=== PATIENT | female | born 1955 | race Caucasian/White ===

== ENCOUNTER 2018-01-27 16:13 | Inpatient (IN) | payer SELFPAY ==
[~2018-01-27] VITALS: Ht 152.4 cm; Wt 40.3 kg
[2018-01-27] VITALS (22 sets, daily range): BP systolic 62–226; BP diastolic 42–133; PULSE 62–97; RESP 16–22; TEMP 89.8–102.4; O2SAT 75–100
[2018-01-27] MEDS ORDERED: LORazepam 2 MG/ML VIAL ONE (16:38)
[2018-01-27] MEDS ORDERED: LORazepam 2 MG/ML VIAL IV PUSH ONE (16:45)
--- NOTE | 2018-01-27 16:56 | PD ---
HPI Chief Complaint: Altered mental status Time Seen by Provider: 16:20 Travel History International Travel<30 days: No Contact w/Intl Traveler<30days: No History of Present Illness HPI Patient is homeless and was brought in by EMS secondary to questionable seizure activity. Patient was smoking K2 and she started to have a seizure. She became combative on the scene and temperature was 101. Gave her ice packs. Is also slightly hypotensive at 90s systolic and tachycardic. Patient arrived in the ER unable to get a history secondary to her being altered and combative. [facility] Social History Tobacco Use: Yes Allergies-Medications (Allergen,Severity, Reaction): Coded Allergies: No Allergy Information Available (Unverified , 01/27/18) altered Review of Systems ROS Limitations: Altered Mental Status, Combative Physical Exam Exam Limitations: Altered Mental Status, Combative Narrative GENERAL: Altered and combative SKIN: Focused skin assessment warm/dry. HEAD: Atraumatic. Normocephalic. EYES: Pupils equal and round. No scleral icterus. No injection or drainage. ENT: No nasal bleeding or discharge. Mucous membranes pink and moist. NECK: Trachea midline. No JVD. CARDIOVASCULAR: Tachycardia. No murmur appreciated. RESPIRATORY: No accessory muscle use. Clear to auscultation. Breath sounds equal bilaterally. Tachypnea. GASTROINTESTINAL: Abdomen soft, non-tender, nondistended. Hepatic and splenic margins not palpable. MUSCULOSKELETAL: No obvious deformities. No clubbing. No cyanosis. No edema. NEUROLOGICAL: Awake and alert. Unable to fully assess secondary to patient being combative. Normal speech. PSYCHIATRIC: Patient combative. Data Data Last Documented VS Vital Signs Date Time Temp Pulse Resp B/P (MAP) Pulse Ox O2 Delivery O2 Flow Rate FiO2 01/27/18 18:46 50 01/27/18 18:35 99 01/27/18 18:28 90 20 88/57 (67) Nasal Cannula 3.00 01/27/18 16:55 102.4 Orders Orders Electrocardiogram (01/27/18 16:27) Complete Blood Count With Diff (01/27/18 16:27) Comprehensive Metabolic Panel (01/27/18 16:27) Creatine Kinase (Cpk) (01/27/18 16:27) Prothrombin Time / Inr (Pt) (01/27/18 16:27) Act Partial Throm Time (Ptt) (01/27/18 16:27) Troponin I (01/27/18 16:27) Urinalysis - C+S If Indicated (01/27/18 16:27) Arterial Blood Gas (Abg) (01/27/18 16:27) Blood Culture (01/27/18 16:27) Chest, Single Ap (01/27/18 16:27) Ct Brain W/O Iv Contrast(Rout) (01/27/18 16:27) Ecg Monitoring (01/27/18 16:) Iv Access Insert/Monitor (01/27/18 16:27) Oximetry (01/27/18 16:27) Drug Screen, Random Urine (01/27/18 16:) Alcohol (Ethanol) (01/27/18 16:27) Tylenol (Acetaminophen) (01/27/18 16:27) Salicylates (Aspirin) (01/27/18 16:27) Lactic Acid (01/27/18 16:27) Urinary Catheter Management REHAN.Q8H (01/27/18 16:27) Restraints Non-Violent REHAN.Q3H (01/27/18 16:37) Lorazepam Inj (Ativan Inj) (01/27/18 16:38) Lorazepam Inj (Ativan Inj) (01/27/18 16:45) Sodium Chlor 0.9% 1000 Ml Inj (Ns 1000 M (01/27/18 18:15) Sodium Chlor 0.9% 1000 Ml Inj (Ns 1000 M (01/27/18 18:15) Sodium Chlor 0.9% 1000 Ml Inj (Ns 1000 M (01/27/18 18:15) Vancomycin Inj (Vancomycin Inj) (01/27/18 18:15) Piperacil-Tazo 3.375 Gm Premix (Zosyn 3. (01/27/18 18:15) Naloxone Inj (Narcan Inj) (01/27/18 18:15) Naloxone Inj (Narcan Inj) (01/27/18 18:20) Etomidate Inj (Amidate Inj) (01/27/18 18:28) Succinylcholine Inj (Quelicin Inj) (01/27/18 18:28) Naloxone Inj (Narcan Inj) (01/27/18 18:45) Naloxone Inj (Narcan Inj) (01/27/18 18:45) Midazolam 50 Mg/50 Ml Inj (Versed Inj) (01/27/18 19:00) Chest, Single Ap (01/27/18 ) Etomidate Inj (Amidate Inj) (01/27/18 18:45) Succinylcholine Inj (Quelicin Inj) (01/27/18 18:45) Sodium Chlor 0.9% 1000 Ml Inj (Ns 1000 M (01/27/18 19:15) Admit Order (Ed Use Only) (01/27/18 19:03) Labs Laboratory Tests Test 01/27/18 16:35 01/27/18 16:40 01/27/18 17:50 01/27/18 18:00 White Blood Count 7.5 TH/MM3 Red Blood Count 3.88 MIL/MM3 Hemoglobin 12.7 GM/DL Hematocrit 37.8 % Mean Corpuscular Volume 97.2 FL Mean Corpuscular Hemoglobin 32.7 PG Mean Corpuscular Hemoglobin Concent 33.6 % Red Cell Distribution Width 13.0 % Platelet Count 204 TH/MM3 Mean Platelet Volume 7.7 FL Neutrophils (%) (Auto) 39.9 % Lymphocytes (%) (Auto) 48.5 % Monocytes (%) (Auto) 9.0 % Eosinophils (%) (Auto) 1.8 % Basophils (%) (Auto) 0.8 % Neutrophils # (Auto) 3.0 TH/MM3 Lymphocytes # (Auto) 3.6 TH/MM3 Monocytes # (Auto) 0.7 TH/MM3 Eosinophils # (Auto) 0.1 TH/MM3 Basophils # (Auto) 0.1 TH/MM3 CBC Comment DIFF FINAL Differential Comment Prothrombin Time 10.1 SEC Prothromb Time International Ratio 1.0 RATIO Activated Partial Thromboplast Time 23.8 SEC Blood Urea Nitrogen 7 MG/DL Creatinine 0.89 MG/DL Random Glucose 81 MG/DL Total Protein 7.5 GM/DL Albumin 3.5 GM/DL Calcium Level 7.7 MG/DL Alkaline Phosphatase 62 U/L Aspartate Amino Transf (AST/SGOT) 27 U/L Alanine Aminotransferase (ALT/SGPT) 21 U/L Total Bilirubin 0.3 MG/DL Sodium Level 137 MEQ/L Potassium Level 3.9 MEQ/L Chloride Level 104 MEQ/L Carbon Dioxide Level 21.2 MEQ/L Anion Gap 12 MEQ/L Estimat Glomerular Filtration Rate 55 ML/MIN Total Creatine Kinase 54 U/L Troponin I LESS THAN 0.02 NG/ML Salicylates Level 5.4 MG/DL Acetaminophen Level LESS THAN 2.0 MCG/ML Ethyl Alcohol Level 129 MG/DL Lactic Acid Level 3.9 mmol/L Urine Color YELLOW Urine Turbidity CLEAR Urine pH 5.0 Urine Specific [place] 1.005 Urine Protein NEG mg/dL Urine Glucose (UA) NEG mg/dL Urine Ketones NEG mg/dL Urine Occult Blood NEG Urine Nitrite NEG Urine Bilirubin NEG Urine Urobilinogen LESS THAN 2 mg/dL Urine Leukocyte Esterase NEG Urine RBC LESS THAN 1 /hpf Urine WBC 1 /hpf Urine Squamous Epithelial Cells 1 /hpf Urine Hyaline Casts 1 /lpf Urine Mucus FEW /lpf Microscopic Urinalysis Comment CATH-CULT NOT IND Urine Opiates Screen NEG Urine Barbiturates Screen NEG Urine Amphetamines Screen NEG Urine Benzodiazepines Screen NEG Urine Cocaine Screen NEG Urine Cannabinoids Screen NEG Blood Gas Puncture Site RT RADIAL Blood Gas Patient Temperature 98.6 Blood Gas HCO3 21 mmol/L Blood Gas Base Excess -5.8 mmol/L Blood Gas Oxygen Saturation 85 % Arterial Blood pH 7.18 Arterial Blood Partial Pressure CO2 59 mmHg Arterial Blood Partial Pressure O2 75 mmHG Arterial Blood Oxygen Content 12.5 Vol % Arterial Blood Carboxyhemoglobin 4.7 % Arterial Blood Methemoglobin 0.7 % Blood Gas Hemoglobin 10.3 G/DL Oxygen Delivery Device NASAL CANNULA Blood Gas Liter Flow 5 L/M [facility] Medical Decision Making Medical Screen Exam Complete: Yes Emergency Medical Condition: Yes Interpretation(s) ECG: Sinus tachycardia 106, ST depression lead 2/3/aVF Labs: Elevated lactate and alcohol; increased CO2 on ABG Last Impressions Head CT 01/27/181626 Signed Impressions: CONCLUSION: 1. No acute abnormality seen. 2. Mild atrophy. Chest X-Ray 01/27/181626 Signed Impressions: CONCLUSION: Negative for acute process. Chest X-Ray 01/27/18 0000 Signed Impressions: CONCLUSION: Endotracheal tube and nasogastric tube in good position. No acute infiltrate. Differential Diagnosis Sepsis, CVA, seizure, electrolyte abnormality, ICH, toxin ingestion, acute intoxication Narrative Course She presents to the emergency department with altered mental status and questionable seizure activity, possibly secondary to K2. Patient placed on gambling monitor, IV access obtained, and labs/EKG/chest x-ray//head CT ordered. Patient given 1 mg IV Ativan. Also placed in soft restraints. Ice packs placed secondary to hyperthermia. 1933: BP 133/77, patient given fourth liter IV normal saline. She was given 1 g of vancomycin and 3.375 g IV Zosyn. Admitted to the ICU. Patient has a repeat lactate that is pending, ICU admit MD to follow. Critical Care Narrative Aggregate critical care time was 35 minutes. Time to perform other separately billable procedures was not included in the critical care time. My time did not include minutes spent treating any other patients simultaneously or on activities that did not directly contribute to the patient's treatment. The services I provided to this patient were to treat and/or prevent clinically significant deterioration that could result in: , respiratory depression, IN, I provided critical care services requiring my management, as noted below: Chart data review, documentation time, medication orders and management, vital sign assessments/reviewing monitor data, ordering and reviewing lab tests, ordering and interpreting/reviewing x-rays and diagnostic studies, care of the patient and discussion of the patient with the admitting physicians. Procedures Procedure Narrative After the risks and benefits were discussed the following procedure was performed: INTUBATION: The patient was put in optimal position for the procedure. Rapid sequence intubation was initiated by me using 14 milligrams of etomidate IV and 70 milligrams of succinyl choline IV. The patient was intubated with a 7-1/2 cuffed endotracheal tube. Tube placement was confirmed by visualization of the tube and balloon passing through the cords, capnometry and subsequent chest x-ray. Breath sounds were equal and well aerated bilaterally postintubation. No breath sounds over stomach. Patient tolerated procedure well. Physician Communication Physician Communication Dr. Eden ICU attending. The patient gets a total of 4 L of IV normal saline. Diagnosis Primary Impression: Altered mental status Qualified Codes: R41.82 - Altered mental status, unspecified Additional Impression: Respiratory failure Qualified Codes: J96.01 - Acute respiratory failure with hypoxia; J96.02 - Acute respiratory failure with hypercapnia Admitting Information Admitting Physician Requests: Admit Condition: Critical Leilani Waller MD Jan 27, 2018 16:56
[2018-01-27 17:03] LABS: BASOPHIL # 0.1 TH/MM3 (0-0.2); BASOPHIL % 0.8 % (0.0-2.0); EOSINOPHIL # 0.1 TH/MM3 (0-0.4); EOSINOPHIL % 1.8 % (0.0-4.0); HEMATOCRIT 37.8 % (35.0-46.0); HEMOGLOBIN 12.7 GM/DL (11.6-15.3); LYMPH % 48.5 % (9.0-44.0); LYMPHOCYTE # 3.6 TH/MM3 (1.0-4.8); MEAN CELL VOLUME 97.2 FL (80.0-100.0); MEAN CORPUSCULAR HEMOGLOBIN 32.7 PG (27.0-34.0); MEAN CORPUSCULAR HGB CONC 33.6 % (32.0-36.0); MEAN PLATELET VOLUME 7.7 FL (7.0-11.0); MONOCYTE # 0.7 TH/MM3 (0-0.9); NEUT % 39.9 % (16.0-70.0); PLATELET COUNT 204 TH/MM3 (150-450); RED BLOOD COUNT 3.88 MIL/MM3 (4.00-5.30); WHITE BLOOD COUNT 7.5 TH/MM3 (4.0-11.0)
--- NOTE | 2018-01-27 17:09 | RADRPT ---
EXAM DATE: 01/27/2018 5:04 PM EDT AGE/SEX: 89 years / Female INDICATIONS: Syncope, short of breath CLINICAL DATA: This is the patient's initial encounter. Patient reports that signs and symptoms have been present for 1 day and indicates a pain score of Nonresponsive. MEDICAL/SURGICAL HISTORY: Non-responsive. ETOH Non-responsive. COMPARISON: No prior exams available for comparison. FINDINGS: Lungs are clear. Heart and [place] vascularity are normal. Old rib fractures seen on the right. There is no pneumothorax. I see an acute fracture. CONCLUSION: Negative for acute process. Electronically signed by: Ezequiel Malhotra MD 01/27/2018 5:07 PM EDT
[2018-01-27 17:16] LABS: PROTHROMBIN TIME - PATIENT 10.1 SEC (9.8-11.6)
--- NOTE | 2018-01-27 17:41 | RADRPT ---
EXAM DATE: 01/27/2018 5:37 PM EDT AGE/SEX: 89 years / Female INDICATIONS: Altered mental status. CLINICAL DATA: This is the patient's initial encounter. Patient reports that signs and symptoms have been present for 1 day and indicates a pain score of Nonresponsive. MEDICAL/SURGICAL HISTORY: Non-responsive. Non-responsive. RADIATION DOSE: 34.63 CTDI (mGy) COMPARISON: No prior exams available for comparison. TECHNIQUE: CT of the head without contrast. Using automated exposure control and adjustment of the mA and/or kV according to patient size, radiation dose was kept as low as reasonably achievable to ob tain optimal diagnostic quality images. FINDINGS: Cerebrum: The ventricles and cortical sulci are mildly widened. No evidence of midline shift, mass lesion, hemorrhage or acute infarction. No extraaxial fluid collections are seen. Posterior Fossa: The cerebellum and brainstem are intact. The 4th ventricle is midline. The cerebe llopontine angle is unremarkable. Extracranial: The visualized portion of the orbits is intact. Skull: The calvaria is intact. No evidence of skull fracture. CONCLUSION: 1. No acute abnormality seen. 2. Mild atrophy. Electronically signed by: Jose Antonio Avalos MD 01/27/2018 5:39 PM EDT
[2018-01-27] MEDS ORDERED: PIPERACIL-TAZO 3.375 GM PREMIX 50 ML IV ONE (18:15)
[2018-01-27] MEDS ORDERED: VANCOMYCIN INJ 1,000 MG in SODIUM CHLOR 0.9% 250 ML INJ 250 ML IV ONE (18:15)
[2018-01-27] MEDS ORDERED: SODIUM CHLOR 0.9% 1000 ML INJ 1,000 ML IV ONE ×4 (18:15→19:15)
[2018-01-27] MEDS ORDERED: NALOXONE HCL 0.4 MG/ML AMP ONE ×2 (18:15→18:20)
[2018-01-27] MEDS ORDERED: SUCCINYLCHOLINE CHLORIDE 200 MG/10 ML VIAL ONE (18:28)
[2018-01-27] MEDS ORDERED: ETOMIDATE 40 MG/20 ML VIAL ONE (18:28)
[2018-01-27 18:38] LABS: ALBUMIN 3.5 GM/DL (3.4-5.0); ALKALINE PHOSPHATASE 62 U/L (45-117); ALT (GPT) 21 U/L (10-53); AST (GOT) 27 U/L (15-37); BICARBONATE 21.2 MEQ/L (21.0-32.0); BLOOD UREA NITROGEN 7 MG/DL (7-18); CALCIUM 7.7 MG/DL (8.5-10.1); CHLORIDE 104 MEQ/L (98-107); CREATININE 0.89 MG/DL (0.50-1.00); GLOMERULAR FILTRATION RATE 55 ML/MIN (>89); GLUCOSE,RANDOM 81 MG/DL (74-106); SODIUM (NA) 137 MEQ/L (136-145); TOTAL BILIRUBIN ADULT 0.3 MG/DL (0.2-1.0); TOTAL PROTEIN 7.5 GM/DL (6.4-8.2); TROPONIN I LESS THAN 0.02 NG/ML (0.02-0.05)
[2018-01-27] MEDS ORDERED: SUCCINYLCHOLINE CHLORIDE 200 MG/10 ML VIAL IV PUSH ONE (18:45)
[2018-01-27] MEDS ORDERED: ETOMIDATE 20 MG/10 ML VIAL IV PUSH ONE (18:45)
[2018-01-27] MEDS ORDERED: NALOXONE HCL 0.4 MG/ML AMP IV PUSH ONE ×2 (18:45)
[2018-01-27 18:46] LABS: BILIRUBIN, URINE NEG (NEG); BLOOD, URINE NEG (NEG); GLUCOSE,URINE NEG (NEG); HYALINE CAST, URINE 1 /lpf (RARE); KETONE, URINE NEG (NEG); MUCUS URINE FEW /lpf (OCC); NITRITE,URINE NEG (NEG); SQUAMOUS EPITHELIAL CELL URINE 1 /hpf (0-5); URINE COLOR YELLOW (YELLW/STRAW); URINE LEUKOCYTE ESTERASE NEG (NEG)
[2018-01-27 18:57] LABS: ACETAMINOPHEN LESS THAN 2.0 MCG/ML (10.0-30.0)
[2018-01-27] MEDS ORDERED: MIDAZOLAM 50 MG/50 ML INJ 50 ML IV PRN ×2 (19:00→22:00)
--- NOTE | 2018-01-27 19:20 | RADRPT ---
EXAM DATE: 01/27/2018 6:55 PM EDT AGE/SEX: 89 years / Female INDICATIONS: Post intubation and OG tube placement. CLINICAL DATA: This is the patient's initial encounter. Patient reports that signs and symptoms have been present for 1 day and indicates a pain score of Nonresponsive. MEDICAL/SURGICAL HISTORY: Non-responsive. Non-responsive. COMPARISON: C, CHEST SINGLE AP, 01/27/2018. . FINDINGS: Endotracheal tube in good position. NG enters stomach. No focal consolidation or effusion. No pneumot horax. Mild interstitial prominence. Remote right rib fractures. CONCLUSION: Endotracheal tube and nasogastric tube in good position. No acute infiltrate. Electronically signed by: Giuliano Luong MD 01/27/2018 7:19 PM EDT
[2018-01-27] MEDS ORDERED: NOREPINEPHRINE 4 MG/4 ML AMP ONE (20:20)
[2018-01-27] MEDS ORDERED: DOPamine 400 MG/250 ML INJ 250 ML ONE (20:33)
[2018-01-27] MEDS ORDERED: ATROPINE SULFATE 1 MG/10 ML SYRINGE ONE (20:34)
[2018-01-27] MEDS ORDERED: CHLORHEXIDINE GLUCONATE 2 % 1 PACK (2 CLOTHS) TOP PRN (21:30)
[2018-01-27] MEDS ORDERED: NURSING INFORMATION XX SCH (21:30)
[2018-01-27] MEDS ORDERED: RESP: ALBUTEROL 2.5 MG/IPRATROPIUM 0.5 MG NEB (PRN) INH (21:30)
[2018-01-27] MEDS ORDERED: SODIUM CHLORIDE 0.9% FLUSH 10 ML FLUSH IV FLUSH PRN (21:30)
[2018-01-27] MEDS ORDERED: ACETAMINOPHEN 325 MG TAB PO PRN (21:30)
[2018-01-27] MEDS ORDERED: TERBUTALINE INJ 1 MG/ML AMP SQ PRN ×2 (21:45)
[2018-01-27] MEDS ORDERED: NOREPINEPHRINE-DEXTROSE DRIP 250 ML IV PRN (22:00)
[2018-01-27] MEDS: RESP: ALBUTEROL 2.5 MG/IPRATROPIUM 0.5 MG NEB (SCH) NEB (22:06)
[2018-01-27 22:51] LABS: TROPONIN I LESS THAN 0.02 NG/ML (0.02-0.05)
[2018-01-27] MEDS ORDERED: DOPamine 800 MG/500 ML INJ 500 ML IV PRN (23:00)
[2018-01-27] MEDS ORDERED: MIDAZOLAM 50 MG/50 ML INJ 50 ML IV ONE (23:05)
[2018-01-28] VITALS (58 sets, daily range): BP systolic 65–130; BP diastolic 43–83; PULSE 67–98; RESP 19–29; TEMP 93.5–98.9; O2SAT 87–100
--- NOTE | 2018-01-28 00:06 | HHI.HP ---
HPI Service Critical Care Medicine Primary Care Physician Admission Diagnosis K2 and opioid intox Diagnosis: Chief Complaint: Altered mental status/seizure Travel History International Travel<30 Days: No Contact w/Intl Traveler <30 Da: No Traveled to Known Affected Are: No Sepsis Criteria SIRS Criteria (2 or more): Temp > 100.9 or < 96.8, RR > 20 or PaCO2 < 32 Sepsis Criteria (SIRS+source): Infect source susp/known Severe Sepsis (+one): Hypotension Septic Shock Criteria: Unresponsive to 30ml/kg fluid bolus Criteria Outcome: Meets septic shock criteria History of Present Illness History of Present Illness HPI Patient is homeless and was brought in by EMS secondary to questionable seizure activity. Patient was smoking K2 and she started to have a seizure. She became combative on the scene and temperature was 101. Gave her ice packs. She was also slightly hypotensive at 90s systolic and tachycardic. Patient arrived in the ER unable to get a history secondary to her being altered and combative. Patient was intubated by ER physician and placed on mechanical ventilation. Subsequently patient developed hypotension received 4 L fluid boluses however remained hypotensive with systolic blood pressure in the 60s when I arrived to evaluate her in the ER. She had been started on Versed which was held earlier due to hypotension. When I evaluated the patient she was orally intubated on mechanical ventilation with systolic blood pressure in the 60s and heart rate in the 40s. I immediately ordered Levophed and dopamine GTT. I immediately started making preparation to place a central line however patient developed worsening bradycardia with heart rate dropping down to 25. She was given 1 amp of atropine and epinephrine IV push with which her heart rate came up to the 100s and blood pressure improved. A left femoral central line was placed emergently for central vascular access. Bedside echo performed by myself revealed good LV/RV contractility with no pericardial effusion noted. Patient did receive a dose of vancomycin and Zosyn IV in the ER she was also febrile up to 102 on arrival though this may be related to K2 use. History PFSH Social History Tobacco Use: Yes Allergies-Medications Allergies-Medications (Allergen,Severity, Reaction): Coded Allergies: No Allergy Information Available (Unverified , 01/27/18) altered ROS Review of Systems ROS Limitations: Altered Mental Status Physical Exam Vital Signs Vital Signs Date Time Temp Pulse Resp B/P (MAP) Pulse Ox O2 Delivery O2 Flow Rate FiO2 01/27/18 23:25 89.8 86 22 132/79 (96) 18 23:00 100 100 18 22:38 100 100 18 22:31 97.0 62 22 117/75 (89) 99 Ventilator 18 22:13 100 18 22:09 62 16 117/80 (92) 97 Ventilator 18 22:06 62 117/80 18 22:06 63 117/80 18 21:01 77 16 152/79 (103) 100 Ventilator 18 20:46 92 18 136/81 (99) 99 Ventilator 18 20:41 73 16 200/133 (155) 92 Ventilator 18 20:25 100 100 18 19:57 63 16 62/47 (52) 100 Ventilator 18 19:49 68 16 62/47 (52) 100 Ventilator 18 19:47 71 16 64/42 (49) 100 Ventilator 18 19:41 75 16 133/75 (94) 75 Room Air 18 19:26 97 16 226/89 (134) 100 Ventilator 18 19:07 82 18 132/76 (94) 100 Ventilator 18 18:46 50 18 18:35 99 100 18/18 18:28 90 20 88/57 (67) 96 Nasal Cannula 3.00 1818 18:24 89 20 88/57 (67) 97 Nasal Cannula 3.00 18 17:56 86 18 82/52 (62) 100 Nasal Cannula 3.00 1818 16:55 102.4 89 18 100 Nasal Cannula 3.00 1818 16:55 93 Room Air 18 16:30 102.4 94 18 101/77 (85) 93 Physical Exam HEENT/ Neuro: Sedated/encephalopathic, orally intubated, Pallor present, no icterus, tongue/ mucosa dry Neck: No JVD Chest/Pulm: on mech vent, good air entry bilaterally, no wheezing or crackles CVS: S1-S2 regular, no murmur GI/abdomen: soft, nontender, bowel sounds sluggish Extremities: warm bilaterally, no edema Laboratory Laboratory Tests Test 01/27/18 16:35 01/27/18 16:40 01/27/18 17:50 01/27/18 18:00 White Blood Count 7.5 Red Blood Count 3.88 Hemoglobin 12.7 Hematocrit 37.8 Mean Corpuscular Volume 97.2 Mean Corpuscular Hemoglobin 32.7 Mean Corpuscular Hemoglobin Concent 33.6 Red Cell Distribution Width 13.0 Platelet Count 204 Mean Platelet Volume 7.7 Neutrophils (%) (Auto) 39.9 Lymphocytes (%) (Auto) 48.5 Monocytes (%) (Auto) 9.0 Eosinophils (%) (Auto) 1.8 Basophils (%) (Auto) 0.8 Neutrophils # (Auto) 3.0 Lymphocytes # (Auto) 3.6 Monocytes # (Auto) 0.7 Eosinophils # (Auto) 0.1 Basophils # (Auto) 0.1 CBC Comment DIFF FINAL Differential Comment Prothrombin Time 10.1 Prothromb Time International Ratio 1.0 Activated Partial Thromboplast Time 23.8 Blood Urea Nitrogen 7 Creatinine 0.89 Random Glucose 81 Total Protein 7.5 Albumin 3.5 Calcium Level 7.7 Alkaline Phosphatase 62 Aspartate Amino Transf (AST/SGOT) 27 Alanine Aminotransferase (ALT/SGPT) 21 Total Bilirubin 0.3 Sodium Level 137 Potassium Level 3.9 Chloride Level 104 Carbon Dioxide Level 21.2 Anion Gap 12 Estimat Glomerular Filtration Rate 55 Total Creatine Kinase 54 Troponin I LESS THAN 0.02 Salicylates Level 5.4 Acetaminophen Level LESS THAN 2.0 Ethyl Alcohol Level 129 Lactic Acid Level 3.9 Urine Color YELLOW Urine Turbidity CLEAR Urine pH 5.0 Urine Specific [place] 1.005 Urine Protein NEG Urine Glucose (UA) NEG Urine Ketones NEG Urine Occult Blood NEG Urine Nitrite NEG Urine Bilirubin NEG Urine Urobilinogen LESS THAN 2 Urine Leukocyte Esterase NEG Urine RBC LESS THAN 1 Urine WBC 1 Urine Squamous Epithelial Cells 1 Urine Hyaline Casts 1 Urine Mucus FEW Microscopic Urinalysis Comment CATH-CULT NOT IND Urine Opiates Screen NEG Urine Barbiturates Screen NEG Urine Amphetamines Screen NEG Urine Benzodiazepines Screen NEG Urine Cocaine Screen NEG Urine Cannabinoids Screen NEG Blood Gas Puncture Site RT RADIAL Blood Gas Patient Temperature 98.6 Blood Gas HCO3 21 Blood Gas Base Excess -5.8 Blood Gas Oxygen Saturation 85 Arterial Blood pH 7.18 Arterial Blood Partial Pressure CO2 59 Arterial Blood Partial Pressure O2 75 Arterial Blood Oxygen Content 12.5 Arterial Blood Carboxyhemoglobin 4.7 Arterial Blood Methemoglobin 0.7 Blood Gas Hemoglobin 10.3 Oxygen Delivery Device NASAL CANNULA Blood Gas Liter Flow 5 Test 01/27/18 19:17 01/27/18 20:15 01/27/18 22:20 Lactic Acid Level 1.2 Blood Gas Puncture Site RT FEMORAL Blood Gas Patient Temperature 98.6 Blood Gas HCO3 19 Blood Gas Base Excess -8.1 Blood Gas Oxygen Saturation 83 Arterial Blood pH 7.16 Arterial Blood Partial Pressure CO2 56 Arterial Blood Partial Pressure O2 65 Arterial Blood Oxygen Content 12.5 Arterial Blood Carboxyhemoglobin 2.7 Arterial Blood Methemoglobin 0.7 Blood Gas Hemoglobin 10.6 Oxygen Delivery Device VENTILATOR Blood Gas Ventilator Setting Blood Gas Inspired Oxygen 100 Total Creatine Kinase 113 Troponin I LESS THAN 0.02 Date/Time Source Procedure Growth Status 01/27/18 16:40 Blood Peripheral Aerobic Blood Culture Pending Received 01/27/18 16:40 Blood Peripheral Anaerobic Blood Culture Pending Received Result Diagram: 01/27/18 1635 01/27/18 1635 Imaging Last Impressions Head CT 01/27/18 1627 Signed Impressions: CONCLUSION: 1. No acute abnormality seen. 2. Mild atrophy. Chest X-Ray 01/27/181626 Signed Impressions: CONCLUSION: Negative for acute process. Septic Shock Reassessment Septic shock perfusion: reassessment completed Caprini VTE Risk Assessment Caprini VTE Risk Assessment: Mod/High Risk (score >= 2) Caprini Risk Assessment Model Point Value = 1 Point Value = 2 Point Value = 3 Point Value = 5 Age 41-60 Minor surgery BMI > 25 kg/m2 Swollen legs Varicose veins or History of unexplained or recurrent spontaneous Oral contraceptives or hormone replacement Sepsis (< 1 month) Serious lung disease, including pneumonia (< 1 month) Abnormal pulmonary function Acute myocardial infarction Congestive heart failure (< 1 month) History of inflammatory bowel disease Medical patient at bed rest Age 61-74 Arthroscopic surgery Major open surgery (> 45 min) Laparoscopic surgery (> 45 min) Malignancy Confined to bed (> 72 hours) Immobilizing plaster cast Central venous access Age >= 75 History of VTE Family history of VTE Factor V Leiden Prothrombin [id number] Lupus anticoagulant Anticardiolipin antibodies Elevated serum homocysteine Heparin-induced thrombocytopenia Other congenital or acquired thrombophilia Stroke (< 1 month) Elective arthroplasty Hip, pelvis, or leg fracture Acute spinal cord injury (< 1 month) Prophylaxis Regimen Total Risk Factor Score Risk Level Prophylaxis Regimen 0-1 Low Early ambulation 2 Moderate Order ONE of the following: *Sequential Compression Device (SCD) *Heparin 5000 units SQ BID 3-4 Higher Order ONE of the following medications: *Heparin 5000 units SQ TID *Enoxaparin/Lovenox 40 mg SQ daily (WT < 150 kg, CrCl > 30 mL/min) *Enoxaparin/Lovenox 30 mg SQ daily (WT < 150 kg, CrCl > 10-29 mL/min) *Enoxaparin/Lovenox 30 mg SQ BID (WT < 150 kg, CrCl > 30 mL/min) AND/OR *Sequential Compression Device (SCD) 5 or more Highest Order ONE of the following medications: *Heparin 5000 units SQ TID (Preferred with Epidurals) *Enoxaparin/Lovenox 40 mg SQ daily (WT < 150 kg, CrCl > 30 mL/min) *Enoxaparin/Lovenox 30 mg SQ daily (WT < 150 kg, CrCl > 10-29 mL/min) *Enoxaparin/Lovenox 30 mg SQ BID (WT < 150 kg, CrCl > 30 mL/min) AND *Sequential Compression Device (SCD) Assessment and Plan Assessment and Plan Middle-aged female with: Encephalopathy Seizure Substance abuse-K2 spice Acute respiratory failure on mechanical ventilation Shock-vasodilatory shock, suspect septic shock Fever Plan: Neuro: Follow neuro status. Head CT negative for bleed. Versed gtt. as needed for sedation. EEG in a.m. Cardiovascular: Status post 4 L normal saline bolus. Levophed/dopamine for pressor support/bradycardia. Cycle cardiac enzymes. 2D echo in a.m. Continue IV fluids. Suspect vasodilator shock. Pulmonary: Continue mechanical ventilation, vent bundle, bronchodilators as needed. GI/liver: N.p.o. for now. OG tube to low intermittent wall suction. Renal/: IV hydration, strict intake output, monitor and replete electrolytes, follow BUN/creatinine. ID: Empiric antibiotic coverage with IV Zosyn. Patient did receive IV vancomycin in the ER. Follow-up blood cultures, UA urine cultures as well as sputum Gram stain and cultures. Endocrine: Check TSH. Watch for hyperglycemia, SSI for glycemic control if needed. Heme: Follow CBC Prophylaxis: Pepcid/SCDs/subcu heparin Access: Left femoral central venous catheter placed in the ER on 01/27. Consult palliative care to assist with deciding goals of therapy. Condition critical Time spent on critical care excluding procedures 60 minutes Sukhi Dumont MD Jan 28, 2018 00:06
--- NOTE | 2018-01-28 00:38 | PD.PROCEDR ---
Central Line Procedure Date of procedure: 01/27/2018 REASON FOR PROCEDURE Central venous access PROCEDURE PERFORMED Central line placement: Left femoral vein CONSENT Informed consent for procedure was not obtained as this was an emergent procedure due to hypotension/bradycardia requiring pressors ANESTHESIA Local injection of 1% Lidocaine DESCRIPTION OF THE PROCEDURE The patient was placed in supine position. The area was exposed and cleansed with ChloraPrep, times two. Large sterile drape was used to cover the patient, with the site exposed, under sterile conditions including cap, face mask, sterile gown, and sterile gloves. On single attempt, the introducer needle was inserted with negative pressure in syringe and venous flash was obtained. The guide wire was then advanced without any restriction and the needle was removed. The dilator was used without any complications. Using Seldinger technique a 20 cm antimicrobial coated triple-lumen catheter was advanced over the guide wire to a depth of 18 centimeters. The guide wire was removed. All ports were aspirated with dark venous blood return and flushed easily with sterile saline. All ports were capped. Antibiotic disc was placed around central line at puncture site. The central line was secured to the skin with a StatLock. The area was bandaged with sterile see-through central line bandage. COMPLICATIONS: No apparent complications ESTIMATED BLOOD LOSS: Less than 1 cc. Sukhi Dumont MD Jan 28, 2018 00:38
[2018-01-28] MEDS: SODIUM CHLOR 0.9% 1000 ML INJ 1,000 ML IV SCH ×5 (01:00→22:15)
[2018-01-28] MEDS: PIPERACIL-TAZO 3.375 GM PREMIX 50 ML IV SCH ×2 (01:08→05:36)
[2018-01-28] MEDS: HEPARIN SODIUM - SQ 10,000 UNITS/ML VIAL SQ SCH ×2 (01:08→10:34)
[2018-01-28] MEDS: RESP: ALBUTEROL 2.5 MG/IPRATROPIUM 0.5 MG NEB (SCH) NEB ×4 (03:31→20:30)
[2018-01-28] MEDS: CHLORHEXIDINE GLUCONATE 2 % 1 PACK (2 CLOTHS) TOP SCH (03:52)
[2018-01-28 07:15] LABS: BASOPHIL % 0.4 % (0.0-2.0); EOSINOPHIL % 0.3 % (0.0-4.0); HEMATOCRIT 39.5 % (35.0-46.0); HEMOGLOBIN 13.3 GM/DL (11.6-15.3); LYMPH % 10.4 % (9.0-44.0); LYMPHOCYTE # 1.3 TH/MM3 (1.0-4.8); MEAN CELL VOLUME 97.7 FL (80.0-100.0); MEAN CORPUSCULAR HEMOGLOBIN 32.8 PG (27.0-34.0); MEAN CORPUSCULAR HGB CONC 33.6 % (32.0-36.0); MEAN PLATELET VOLUME 7.7 FL (7.0-11.0); MONO % 9.3 % (0.0-8.0); MONOCYTE # 1.2 TH/MM3 (0-0.9); NEUT % 79.6 % (16.0-70.0); PLATELET COUNT 165 TH/MM3 (150-450); RED BLOOD COUNT 4.04 MIL/MM3 (4.00-5.30); RED CELL DISTRIBUTION WIDTH 12.8 % (11.6-17.2); WHITE BLOOD COUNT 12.6 TH/MM3 (4.0-11.0)
[2018-01-28 07:46] LABS: ALBUMIN 2.8 GM/DL (3.4-5.0); BICARBONATE 23.9 MEQ/L (21.0-32.0); CALCIUM 7.3 MG/DL (8.5-10.1); CALCIUM-PROTEIN CORRECTED 7.8 MG/DL (8.5-10.1); CREATININE 0.63 MG/DL (0.50-1.00); MAGNESIUM 1.2 MG/DL (1.5-2.5); PHOSPHORUS 2.1 MG/DL (2.5-4.9); TOTAL BILIRUBIN ADULT 0.9 MG/DL (0.2-1.0); TOTAL PROTEIN 6.1 GM/DL (6.4-8.2); TROPONIN I 0.12 NG/ML (0.02-0.05)
[2018-01-28 08:30] LABS: BANDS 8 % (0-6); BASOPHILS 1 % (0-2); LYMPHOCYTES 7 % (9-44); MONOCYTES 10 % (0-8); NEUTROPHIL # MANUAL DIFF 10.3 TH/MM3 (1.8-7.7); POLYS (SEG NEUTROPHILS) 74 % (16-70)
[2018-01-28] MEDS: CHLORHEXIDINE 0.12% (ORAL KIT) 15 ML CUP MT SCH ×2 (09:10→20:00)
[2018-01-28] MEDS: FAMOTIDINE 20 MG TAB TUBE SCH ×2 (09:11→21:00)
[2018-01-28] MEDS: SODIUM CHLORIDE 0.9% FLUSH 10 ML FLUSH IV FLUSH SCH ×2 (09:11→22:13)
[2018-01-28] MEDS ORDERED: POTASSIUM PHOSPHATE MONOBASIC 500 MG TAB PO PRN (10:15)
[2018-01-28] MEDS ORDERED: POTASSIUM PHOSPHATE MONOBASIC 500 MG TAB PO/TUBE PRN (10:15)
[2018-01-28] MEDS ORDERED: MAGNESIUM OXIDE 400 MG TAB PO PRN (10:15)
[2018-01-28] MEDS ORDERED: POTASSIUM CHLOR 40 MEQ PREMIX 100 ML IV PRN ×2 (10:15)
[2018-01-28] MEDS ORDERED: POTASSIUM CHLOR 20 MEQ PREMIX 100 ML IV PRN (10:15)
[2018-01-28] MEDS ORDERED: MAGNESIUM SULFATE INJ 2 GM in SODIUM CHLORIDE 0.9% INJ 96 ML IV PRN (10:15)
[2018-01-28] MEDS ORDERED: POTASSIUM CHLORIDE 25 MEQ EFFERVESCENT TAB PO PRN (10:15)
[2018-01-28] MEDS ORDERED: SODIUM PHOSPHATE INJ 30 MMOL in SODIUM CHLOR 0.9% 250 ML INJ 240 ML IV PRN (10:15)
[2018-01-28] MEDS ORDERED: POTASSIUM PHOSPHATE INJ 30 MMOL in SODIUM CHLOR 0.9% 250 ML INJ 250 ML IV PRN (10:15)
[2018-01-28] MEDS ORDERED: MAGNESIUM SULFATE INJ 4 GM in SODIUM CHLORIDE 0.9% INJ 92 ML IV PRN (10:15)
--- NOTE | 2018-01-28 10:25 | HHI.CCPN ---
Subjective Remarks/Hospital Course Patient is homeless and was brought in by EMS secondary to questionable seizure activity. Patient was smoking K2 and she started to have a seizure. She became combative on the scene and temperature was 101. Gave her ice packs. She was also slightly hypotensive at 90s systolic and tachycardic. Patient arrived in the ER unable to get a history secondary to her being altered and combative. Patient was intubated by ER physician and placed on mechanical ventilation. Subsequently patient developed hypotension received 4 L fluid boluses however remained hypotensive with systolic blood pressure in the 60s when I arrived to evaluate her in the ER. She had been started on Versed which was held earlier due to hypotension. When I evaluated the patient she was orally intubated on mechanical ventilation with systolic blood pressure in the 60s and heart rate in the 40s. I immediately ordered Levophed and dopamine GTT. I immediately started making preparation to place a central line however patient developed worsening bradycardia with heart rate dropping down to 25. She was given 1 amp of atropine and epinephrine IV push with which her heart rate came up to the 100s and blood pressure improved. A left femoral central line was placed emergently for central vascular access. Bedside echo performed by myself revealed good LV/RV contractility with no pericardial effusion noted. Patient did receive a dose of vancomycin and Zosyn IV in the ER she was also febrile up to 102 on arrival though this may be related to K2 use. 01/28: No events over the night. Patient remains intubated, Versed drip stopped this morning. Patient continues to require dopamine at 10, for BP support, bradycardia resolved, norepinephrine is off. She was hypothermic overnight requiring Muriel hugger now normothermic. She is lethargic and very difficult to arouse. Objective Vital Signs Date Time Temp Pulse Resp B/P (MAP) Pulse Ox O2 Delivery O2 Flow Rate FiO2 01/28/18 08:06 97 Ventilator 40 01/28/18 06:00 81 01/28/18 04:00 93.5 22 92/70 (77) 01/27/18 18:28 3.00 Intake and Output 01/28/18 01/28/18 01/29/18 08:00 16:00 00:00 Intake Total 50 ml Output Total 1500 ml Balance -1450 ml Result Diagram: 01/28/18 0500 01/28/18 0500 Other Results Microbiology Date/Time Source Procedure Growth Status 01/27/18 16:40 Blood Peripheral Aerobic Blood Culture Pending Received 01/27/18 16:40 Blood Peripheral Anaerobic Blood Culture Pending Received 01/27/18 16:35 Blood Peripheral Aerobic Blood Culture Pending Received 01/27/18 16:35 Blood Peripheral Anaerobic Blood Culture Pending Received 01/27/18 23:30 Sputum Endotracheal Gram Stain Pending Received 01/27/18 23:30 Sputum Endotracheal Sputum Culture Pending Received Laboratory Tests Test 01/27/18 18:00 01/27/18 20:15 01/27/18 22:55 Blood Gas Puncture Site RT RADIAL RT FEMORAL RT RADIAL Blood Gas Patient Temperature 98.6 98.6 98.6 Blood Gas HCO3 21 mmol/L (22-26) 19 mmol/L (22-26) 19 mmol/L (22-26) Blood Gas Base Excess -5.8 mmol/L (-2-2) -8.1 mmol/L (-2-2) -5.8 mmol/L (-2-2) Blood Gas Oxygen Saturation 85 % (90-100) 83 % (90-100) 96 % (90-100) Arterial Blood pH 7.18 (7.380-7.420) 7.16 (7.380-7.420) 7.37 (7.380-7.420) Arterial Blood Partial Pressure CO2 59 mmHg (38-42) 56 mmHg (38-42) 33 mmHg (38-42) Arterial Blood Partial Pressure O2 75 mmHG (61-120) 65 mmHG (61-120) 123 mmHG (61-120) Arterial Blood Oxygen Content 12.5 Vol % (12.0-20.0) 12.5 Vol % (12.0-20.0) 19.2 Vol % (12.0-20.0) Arterial Blood Carboxyhemoglobin 4.7 % (0-4) 2.7 % (0-4) 1.6 % (0-4) Arterial Blood Methemoglobin 0.7 % (0-2) 0.7 % (0-2) 0.6 % (0-2) Blood Gas Hemoglobin 10.3 G/DL (12.0-16.0) 10.6 G/DL (12.0-16.0) 14.1 G/DL (12.0-16.0) Oxygen Delivery Device NASAL CANNULA VENTILATOR VENTILATOR Blood Gas Liter Flow 5 L/M Blood Gas Ventilator Setting Blood Gas Inspired Oxygen 100 % 100 % Imaging Last [address] 01/27/181626 Signed Impressions: CONCLUSION: 1. No acute abnormality seen. 2. Mild atrophy. Chest X-Ray 01/27/181626 Signed Impressions: CONCLUSION: Negative for acute process. Last Impressions Head CT 01/27/181626 Signed Impressions: CONCLUSION: 1. No acute abnormality seen. 2. Mild atrophy. Chest X-Ray 01/27/181626 Signed Impressions: CONCLUSION: Negative for acute process. Objective Remarks General: Elderly appearing lady, lethargic, difficult to arouse, intubated, ill- appearing HEENT: Pupils are equal, 4 mm bilaterally, not reactive, no gaze deviation, sclerae are anicteric, orally intubated Neck: Neck veins not distended, no carotid bruit Chest/Pulm: Coarse breath sounds bilateral, no wheezes, good air entry CVS: S1-S2 regular, no murmurs appreciated GI/abdomen: Soft, slightly distended, nontender, bowel sounds decreased. No hepatomegaly or splenomegaly appreciated Extremities: Warm and well-perfused, no edema, pulses are present. No clubbing Skin: Stage I sacral decubitus present. No cyanosis A/P Assessment and Plan 1. Acute encephalopathy, likely in the setting of substance abuse - K 2 2. New onset seizure, likely secondary to above 3. Acute respiratory failure due to inability to protect the airway 4. Circulatory shock, likely septic but hypovolemia definitely contributing 5. Episode of bradycardia in ED -resolved 6. ALICJA 7. Hypokalemia, hypophosphatemia, hypomagnesemia 1. Continue PRVC at current vent settings. Patient is synchronized with the vent, no auto PEEP, Pip 19 2. Vent bundle and bronchodilators 3. Hold sedation and when more awake we will attempt SBT 4. Continue BP support with dopamine and titrate to keep map above 65 5. Continue vancomycin and change Zosyn to cefepime 6. Follow-up cultures 7. Electrolyte replacement protocol ordered. Aggressively replete electrolytes 8. Repeat CMP, magnesium and phosphorus at 6 PM 9. Check CPK 10. Continue femoral central line today 11. GI and DVT prophylaxis 12. Continue IV hydration 13. N.p.o. for now 14. Palliative care consult I spent 32 minutes of critical care time, excluding procedures, managing ventilator, pressor, severe electrolyte disturbances, reviewing data, ordering labs and discussing with nursing staff. No family is present at bedside. Jose E Junior MD Jan 28, 2018 10:25
[2018-01-28] MEDS ORDERED: Vancomycin Consult Pharmacy 1 EA OTHER SCH (10:30)
[2018-01-28] MEDS: POTASSIUM CHLOR 20 MEQ PREMIX 100 ML IV PRN ×2 (10:30→12:04)
[2018-01-28] MEDS: CEFEPIME INJ 2,000 MG in SODIUM CHLORIDE 0.9% INJ 100 ML IV SCH ×2 (10:42→22:14)
[2018-01-28] MEDS: VANCOMYCIN INJ 750 MG in SODIUM CHLOR 0.9% 250 ML INJ 250 ML IV SCH (13:25)
--- NOTE | 2018-01-28 13:49 | PD.CONS ---
Consult Service Palliative Care . Consult Requested By Dr. Dumont . Primary Care Physician Unknown. . Reason for Consultation a. To assist with evaluation and management of symptoms including: dyspnea, pain. b. To assist medical decision maker(s) with: better understanding of current medical conditions; weighing benefits/burdens of medical treatment options; making medical treatment decisions. . HPI History of Present Illness Lucia West has not yet been identified. She is reportedly homeless brought in via EMS after smoking K2 and then having questionable seizure. She became combative at the scene. She was found to have a temp of 101, ice packs placed. She was hypotensive, systolic pressure in the 90's and tachycardic. Upon arrival to the ER patient was intubated and placed on mechanical ventilation. Patient received Vancomycin and Zosyn IV in the ER, though fever may have been related to [place] use. Subsequently patient developed hypotension received 4 L fluid boluses however remained hypotensive with systolic blood pressure in the 60s and heart rate in the 40s. Patient was started on Levophed and dopamine drips. As team was preparing for central line patient developed worsening bradycardia with heart rate dropping down to 25. She was given 1 amp of atropine and epinephrine IV push with which her heart rate came up to the 100s and blood pressure improved. A left femoral central line was placed emergently for central vascular access. Bedside echo performed by Dr. Dumont which revealed good LV/RV contractility with no pericardial effusion. Palliative care was consulted to assist in identifying legal health care proxy and to further clarify medical treatment goals. . Function/Cognitive Trajectory Unknown. . Review of Systems ROS Limitations: Intubated, Altered Mental Status Other ROS: Unable to obtain, pt intubated on vent unable to answer questions. . Past Family Social History Coded Allergies: No Allergy Information Available (Unverified , 01/27/18) altered Past Medical History Unable to obtain, pt intubated on vent unable to answer questions. . Past Surgical History Unable to obtain, pt intubated on vent unable to answer questions. . Reported Medications Unable to obtain, pt intubated on vent unable to answer questions. . Current Medications Medications (Trade) Dose Ordered Sig/Savage Route Start Time Stop Time Status Last Admin Sodium Chloride 1,000 ml @ 125 mls/hr Q8H IV 01/27/18 22:00 01/28/18 09:10 (NS Flush) 2 ml UNSCH PRN IV FLUSH 01/27/18 21:30 (NS Flush) 2 ml BID IV FLUSH 01/28/18 09:00 01/28/18 09:11 (Tylenol) 650 mg Q6H PRN PO 01/27/18 21:30 (Duoneb Neb) 1 ampule Q6HR NEB NEB 01/27/18 22:00 01/28/18 08:04 (Duoneb Neb) 1 ampule Q4HR NEB PRN INH 01/27/18 21:30 (Peridex 0.12% Liq) 15 ml BID@08,20 MT 01/28/18 08:00 01/28/18 09:10 (Pepcid) 20 mg BID TUBE 01/28/18 09:00 01/28/18 09:11 ([facility]) 1 Q361D XX 01/27/18 21:30 01/27/18 21:30 (Chlorhexidine 2% Cloth) 3 pack Taper DAILY@04 TOP 01/28/18 04:00 01/24/19 03:59 01/28/18 03:52 (Chlorhexidine 2% Cloth) 3 pack UNSCH PRN TOP 01/27/18 21:30 Midazolam HCl 50 ml @ 2 mls/hr TITRATE PRN IV 01/27/18 22:00 Norepinephrine Bitartrate 250 ml @ 7.5 mls/hr TITRATE PRN IV 01/27/18 22:00 01/27/18 22:06 (Brethine Inj) 1 mg UNSCH PRN SQ 01/27/18 21:45 Dopamine HCl/ Dextrose 500 ml @ 5.288 mls/ hr TITRATE PRN IV 01/27/18 23:00 01/27/18 22:06 (Heparin Inj) 5,000 units Q12H SQ 01/28/18 00:00 01/28/18 10:34 Potassium Chloride 100 ml @ 50 mls/hr Q2H PRN IV 01/28/18 10:15 Potassium Chloride 100 ml @ 50 mls/hr Q2H PRN IV 01/28/18 10:15 01/28/18 12:04 (K-Lyte Cl Eff) 50 meq UNSCH PRN PO 01/28/18 10:15 Potassium Chloride 100 ml @ 25 mls/hr UNSCH PRN IV 01/28/18 10:15 Potassium Chloride 100 ml @ 50 mls/hr Q2H PRN IV 01/28/18 10:15 Magnesium Sulfate 4 gm/Sodium Chloride 100 ml @ 50 mls/hr UNSCH PRN IV 01/28/18 10:15 (Mag-Ox) 800 mg UNSCH PRN PO 01/28/18 10:15 Magnesium Sulfate 2 gm/Sodium Chloride 100 ml @ 50 mls/hr UNSCH PRN IV 01/28/18 10:15 (K-Phos) 2,000 mg Q4H PRN PO 01/28/18 10:15 Sodium Phosphate 30 mmol/Sodium Chloride 250 ml @ 42 mls/hr UNSCH PRN IV 01/28/18 10:15 (K-Phos) 2,000 mg UNSCH PRN PO/TUBE 01/28/18 10:15 Potassium Phosphate 30 mmol/ Sodium Chloride 260 ml @ 42 mls/hr UNSCH PRN IV 01/28/18 10:15 Cefepime HCl 2000 mg/Sodium Chloride 100 ml @ 200 mls/hr Q12H IV 01/28/18 11:00 01/28/18 10:42 Pharmacy Profile Note 0 ml @ 0 mls/hr UNSCH OTHER 01/28/18 10:30 Vancomycin HCl 750 mg/Sodium Chloride 257.5 ml @ 250 mls/hr Q12H IV 01/28/18 13:00 01/28/18 13:25 ([facility] Ordered Lab Info) SPECIFIC LAB TO BE ... ONCE ONCE .XX 01/30/18 12:45 01/30/18 12:46 Family History Unable to obtain, pt intubated on vent unable to answer questions. . Substance Use Tobacco: Alcohol: Prescription med abuse: Illicits: Psychosocial History Homeless. . Spiritual/Cultural Factors Unable to obtain, pt intubated on vent unable to answer questions. . Living Will: Never completed Health Care Surrogate: Never completed Durable Power of Licensed Prosthetist/Orthotist: Never completed Health Care Surrogate(s): Unable to obtain, pt intubated on vent unable to answer questions. . Today's verbally stated goals: Patient intubated on vent unable to answer questions. . Family/friends goals: No family at bedside. . Ethical and Legal Issues Unable to obtain, pt intubated on vent unable to answer questions. . Physical Exam Vital Signs Date Time Temp Pulse Resp B/P (MAP) Pulse Ox O2 Delivery O2 Flow Rate FiO2 01/28/18 12:25 86 18 12:20 87 18 12:20 95.5 87 26 92/63 (73) 100 18 12:15 99.9 85 20 91/62 (72) 98 18 12:15 85 18 12:10 87 18 12:10 99.9 87 19 85/62 (70) 99 01/28/18 12:05 99.9 86 22 87/62 (70) 99 01/28/18 12:05 86 01/28/18 12:00 87 01/28/18 12:00 40 01/28/18 12:00 99.9 87 26 85/59 (68) 99 01/28/18 11:25 90 01/28/18 11:20 84 01/28/18 11:15 89 01/28/18 11:10 89 01/28/18 11:09 88 01/28/18 11:05 88 18 11:00 91 01/28/18 10:55 96 18 10:55 40 18 10:50 93 18 10:45 96 18 10:40 93 18 10:35 93 18 10:30 95 18 10:25 96 18 10:20 96 18 10:16 94 18 10:10 92 18 10:05 95 18 10:00 91 18 09:35 97 61918 09:35 101.3 97 23 100/69 (79) 98 619/18 09:30 97 619/18 09:30 101.3 97 22 101/68 (79) 97 18 09:30 97 619/18 09:25 96 619/18 09:25 96 618 09:25 101.3 96 22 99/71 (80) 97 18 09:20 98 1918 09:20 98 61918 09:20 101.3 98 23 98/73 (81) 98 6/19/18 09:15 96 6/19/18 09:15 96 6/19/18 09:15 101.3 96 22 104/75 (85) 98 6/19/18 09:10 97 6/19/18 09:10 101.3 97 22 107/73 (84) 98 6/19/18 09:10 97 6/19/18 09:05 96 6/19/18 09:05 101.3 96 29 98/66 (77) 98 6/19/18 09:05 96 6/19/18 09:00 93 6/19/18 09:00 93 6/19/18 09:00 101.3 93 22 105/74 (84) 98 6/19/18 08:57 93 6/19/18 08:57 101.3 93 22 104/74 (84) 98 6/19/18 08:57 93 6/19/18 08:55 92 6/19/18 08:55 101.3 92 22 108/72 (84) 98 6/19/18 08:55 92 6/19/18 08:50 91 6/19/18 08:50 101.3 91 22 103/66 (78) 98 6/19/18 08:50 91 6/19/18 08:45 92 6/19/18 08:45 101.1 92 22 101/59 (73) 98 6/19/18 08:45 92 6/19/18 08:40 93 6/19/18 08:40 93 6/19/18 08:40 101.1 93 22 75/55 (62) 97 6/19/18 08:38 100.8 92 22 74/50 (58) 97 6/19/18 08:38 92 6/19/18 08:38 92 6/19/18 08:36 55.2 92 24 65/47 (53) 98 6/19/18 08:36 92 6/19/18 08:36 92 6/19/18 08:15 88 6/19/18 08:15 95.4 88 22 68/51 (57) 98 6/19/18 08:15 88 6/19/18 08:10 87 6/19/18 08:10 87 6/19/18 08:10 97.5 87 22 68/52 (57) 97 6/19/18 08:07 86 6/19/18 08:07 86 6/19/18 08:07 100.6 86 22 68/50 (56) 98 6/19/18 08:06 100.6 85 22 73/43 (53) 98 6/19/18 08:06 97 Ventilator 40 6/19/18 08:06 98 40 6/19/18 08:06 85 6/19/18 08:06 85 6/19/18 08:00 87 6/19/18 08:00 87 6/19/18 08:00 100.2 87 24 96 6/19/18 08:00 40 6/19/18 06:00 81 6/19/18 05:13 96 40 6/19/18 04:00 50 6/19/18 04:00 83 6/19/18 04:00 93.5 84 22 92/70 (77) 18 03:31 97 50 6/19/18 02:00 67 619/18 00:00 100 619/18 00:00 97 6/18/18 23:25 89.8 86 22 132/79 (96) 618/18 23:20 96 100 6/18/18 23:00 100 100 6/18/18 22:38 100 100 6/18/18 22:31 97.0 62 22 117/75 (89) 99 Ventilator 6/18/18 22:13 100 6/18/18 22:09 62 16 117/80 (92) 97 Ventilator 6/18/18 22:06 62 117/80 6/18/18 22:06 63 117/80 6/18/18 21:01 77 16 152/79 (103) 100 Ventilator 6/18/18 20:46 92 18 136/81 (99) 99 Ventilator 6/18/18 20:41 73 16 200/133 (155) 92 Ventilator 6/18/18 20:25 100 100 6/18/18 19:57 63 16 62/47 (52) 100 Ventilator 6/18/18 19:49 68 16 62/47 (52) 100 Ventilator 6/18/18 19:47 71 16 64/42 (49) 100 Ventilator 6/18/18 19:41 75 16 133/75 (94) 75 Room Air 6/18/18 19:26 97 16 226/89 (134) 100 Ventilator 01/27/18 19:07 82 18 132/76 (94) 100 Ventilator 01/27/18 18:46 50 01/27/18 18:35 99 100 01/27/18 18:28 90 20 88/57 (67) 96 Nasal Cannula 3.00 01/27/18 18:24 89 20 88/57 (67) 97 Nasal Cannula 3.00 01/27/18 17:56 86 18 82/52 (62) 100 Nasal Cannula 3.00 01/27/18 16:55 102.4 89 18 100 Nasal Cannula 3.00 01/27/18 16:55 93 Room Air 01/27/18 16:55 93 Nasal Cannula 3.00 01/27/18 16:30 102.4 94 18 101/77 (85) 93 01/28/18 01/29/18 18:59 06:59 Intake Total 395 ml Balance 395 ml Intake IV Total 395 ml Exam CONSTITUTIONAL/GENERAL: This is an elderly, thin, ill appearing female, in no apparent distress. TUBES/LINES/DRAINS: ETT, OG, left femoral central line, catheter. SKIN: No jaundice, rashes, or lesions. Ecchymoses on upper extremities. No wounds seen anteriorly, reported stage I decubitus not visualized by me today. HEAD: Atraumatic. Normocephalic. EYES: Pupils equal and round. No scleral icterus. No injection or drainage. ENT: Unable to assess hearing. Nose without bleeding or purulent drainage. Throat difficult to visualize due to tubes. NECK: Trachea midline. CARDIOVASCULAR: Regular rate and rhythm without murmurs. No JVD. Peripheral pulses symmetric. RESPIRATORY/CHEST: Coarse breath sounds bilaterally. GASTROINTESTINAL: Abdomen soft, distended. Bowel sounds hypoactive. GENITOURINARY: Without palpable bladder distension. Lassiter catheter in place. MUSCULOSKELETAL: Extremities without clubbing, cyanosis, or edema. No mottling or clubbing. LYMPHATICS: No palpable cervical or supraclavicular adenopathy. NEUROLOGICAL: Opens eyes briefly, does not follow commands. Moves all extremities. PSYCHIATRIC: lethargic. . Diagnostic Tests Laboratory Laboratory Tests Test 01/27/18 16:35 01/27/18 16:40 01/27/18 17:50 01/27/18 18:00 White Blood Count 7.5 TH/MM3 (4.0-11.0) Red Blood Count 3.88 MIL/MM3 (4.00-5.30) Hemoglobin 12.7 GM/DL (11.6-15.3) Hematocrit 37.8 % (35.0-46.0) Mean Corpuscular Volume 97.2 FL (80.0-100.0) Mean Corpuscular Hemoglobin 32.7 PG (27.0-34.0) Mean Corpuscular Hemoglobin Concent 33.6 % (32.0-36.0) Red Cell Distribution Width 13.0 % (11.6-17.2) Platelet Count 204 TH/MM3 (150-450) Mean Platelet Volume 7.7 FL (7.0-11.0) Neutrophils (%) (Auto) 39.9 % (16.0-70.0) Lymphocytes (%) (Auto) 48.5 % (9.0-44.0) Monocytes (%) (Auto) 9.0 % (0.0-8.0) Eosinophils (%) (Auto) 1.8 % (0.0-4.0) Basophils (%) (Auto) 0.8 % (0.0-2.0) Neutrophils # (Auto) 3.0 TH/MM3 (1.8-7.7) Lymphocytes # (Auto) 3.6 TH/MM3 (1.0-4.8) Monocytes # (Auto) 0.7 TH/MM3 (0-0.9) Eosinophils # (Auto) 0.1 TH/MM3 (0-0.4) Basophils # (Auto) 0.1 TH/MM3 (0-0.2) CBC Comment DIFF FINAL Differential Comment Prothrombin Time 10.1 SEC (9.8-11.6) Prothromb Time International Ratio 1.0 RATIO Activated Partial Thromboplast Time 23.8 SEC (24.3-30.1) Blood Urea Nitrogen 7 MG/DL (7-18) Creatinine 0.89 MG/DL (0.50-1.00) Random Glucose 81 MG/DL (74-106) Total Protein 7.5 GM/DL (6.4-8.2) Albumin 3.5 GM/DL (3.4-5.0) Calcium Level 7.7 MG/DL (8.5-10.1) Alkaline Phosphatase 62 U/L (45-117) Aspartate Amino Transf (AST/SGOT) 27 U/L (15-37) Alanine Aminotransferase (ALT/SGPT) 21 U/L (10-53) Total Bilirubin 0.3 MG/DL (0.2-1.0) Sodium Level 137 MEQ/L (136-145) Potassium Level 3.9 MEQ/L (3.5-5.1) Chloride Level 104 MEQ/L (98-107) Carbon Dioxide Level 21.2 MEQ/L (21.0-32.0) Anion Gap 12 MEQ/L (5-15) Estimat Glomerular Filtration Rate 55 ML/MIN (>89) Total Creatine Kinase 54 U/L (26-192) Troponin I LESS THAN 0.02 NG/ML Salicylates Level 5.4 MG/DL (2.8-20.0) Acetaminophen Level LESS THAN 2.0 MCG/ML Ethyl Alcohol Level 129 MG/DL (0-5) Lactic Acid Level 3.9 mmol/L (0.4-2.0) Urine Color YELLOW (YELLW/STRAW) Urine Turbidity CLEAR (CLEAR) Urine pH 5.0 (5.0-8.5) Urine Specific [place] 1.005 (1.002-1.035) Urine Protein NEG mg/dL (NEG-TRACE) Urine Glucose (UA) NEG mg/dL (NEG) Urine Ketones NEG mg/dL (NEG) Urine Occult Blood NEG (NEG) Urine Nitrite NEG (NEG) Urine Bilirubin NEG (NEG) Urine Urobilinogen LESS THAN 2 mg/dL (LESS Urine Leukocyte Esterase NEG (NEG) Urine RBC LESS THAN 1 /hpf (0-3) Urine WBC 1 /hpf (0-5) Urine Squamous Epithelial Cells 1 /hpf (0-5) Urine Hyaline Casts 1 /lpf (RARE) Urine Mucus FEW /lpf (OCC) Microscopic Urinalysis Comment CATH-CULT NOT IND Urine Opiates Screen NEG (NEG) Urine Barbiturates Screen NEG (NEG) Urine Amphetamines Screen NEG (NEG) Urine Benzodiazepines Screen NEG (NEG) Urine Cocaine Screen NEG (NEG) Urine Cannabinoids Screen NEG (NEG) Blood Gas Puncture Site RT RADIAL Blood Gas Patient Temperature 98.6 Blood Gas HCO3 21 mmol/L (22-26) Blood Gas Base Excess -5.8 mmol/L (-2-2) Blood Gas Oxygen Saturation 85 % (90-100) Arterial Blood pH 7.18 (7.380-7.420) Arterial Blood Partial Pressure CO2 59 mmHg (38-42) Arterial Blood Partial Pressure O2 75 mmHG (61-120) Arterial Blood Oxygen Content 12.5 Vol % (12.0-20.0) Arterial Blood Carboxyhemoglobin 4.7 % (0-4) Arterial Blood Methemoglobin 0.7 % (0-2) Blood Gas Hemoglobin 10.3 G/DL (12.0-16.0) Oxygen Delivery Device NASAL CANNULA Blood Gas Liter Flow 5 L/M Test 01/27/18 19:17 01/27/18 20:15 01/27/18 22:20 01/27/18 22:55 Lactic Acid Level 1.2 mmol/L (0.4-2.0) Blood Gas Puncture Site RT FEMORAL RT RADIAL Blood Gas Patient Temperature 98.6 98.6 Blood Gas HCO3 19 mmol/L (22-26) 19 mmol/L (22-26) Blood Gas Base Excess -8.1 mmol/L (-2-2) -5.8 mmol/L (-2-2) Blood Gas Oxygen Saturation 83 % (90-100) 96 % (90-100) Arterial Blood pH 7.16 (7.380-7.420) 7.37 (7.380-7.420) Arterial Blood Partial Pressure CO2 56 mmHg (38-42) 33 mmHg (38-42) Arterial Blood Partial Pressure O2 65 mmHG (61-120) 123 mmHG (61-120) Arterial Blood Oxygen Content 12.5 Vol % (12.0-20.0) 19.2 Vol % (12.0-20.0) Arterial Blood Carboxyhemoglobin 2.7 % (0-4) 1.6 % (0-4) Arterial Blood Methemoglobin 0.7 % (0-2) 0.6 % (0-2) Blood Gas Hemoglobin 10.6 G/DL (12.0-16.0) 14.1 G/DL (12.0-16.0) Oxygen Delivery Device VENTILATOR VENTILATOR Blood Gas Ventilator Setting Blood Gas Inspired Oxygen 100 % 100 % Total Creatine Kinase 113 U/L (26-192) Troponin I LESS THAN 0.02 NG/ML Test 01/27/18 23:30 01/28/18 05:00 Nasal Screen MRSA (PCR) MRSA NOT DETECTED (NOT White Blood Count 12.6 TH/MM3 (4.0-11.0) Red Blood Count 4.04 MIL/MM3 (4.00-5.30) Hemoglobin 13.3 GM/DL (11.6-15.3) Hematocrit 39.5 % (35.0-46.0) Mean Corpuscular Volume 97.7 FL (80.0-100.0) Mean Corpuscular Hemoglobin 32.8 PG (27.0-34.0) Mean Corpuscular Hemoglobin Concent 33.6 % (32.0-36.0) Red Cell Distribution Width 12.8 % (11.6-17.2) Platelet Count 165 TH/MM3 (150-450) Mean Platelet Volume 7.7 FL (7.0-11.0) Neutrophils (%) (Auto) 79.6 % (16.0-70.0) Lymphocytes (%) (Auto) 10.4 % (9.0-44.0) Monocytes (%) (Auto) 9.3 % (0.0-8.0) Eosinophils (%) (Auto) 0.3 % (0.0-4.0) Basophils (%) (Auto) 0.4 % (0.0-2.0) Neutrophils # (Auto) 10.0 TH/MM3 (1.8-7.7) Lymphocytes # (Auto) 1.3 TH/MM3 (1.0-4.8) Monocytes # (Auto) 1.2 TH/MM3 (0-0.9) Eosinophils # (Auto) 0.0 TH/MM3 (0-0.4) Basophils # (Auto) 0.0 TH/MM3 (0-0.2) CBC Comment AUTO DIFF Differential Total Cells Counted 100 Neutrophils % (Manual) 74 % (16-70) Band Neutrophils % 8 % (0-6) Lymphocytes % 7 % (9-44) Monocytes % 10 % (0-8) Basophils % 1 % (0-2) Neutrophils # (Manual) 10.3 TH/MM3 (1.8-7.7) Differential Comment FINAL DIFF MANUAL Platelet Estimate NORMAL (NORMAL) Platelet Morphology Comment NORMAL (NORMAL) Blood Urea Nitrogen 7 MG/DL (7-18) Creatinine 0.63 MG/DL (0.50-1.00) Random Glucose 107 MG/DL (74-106) Total Protein 6.1 GM/DL (6.4-8.2) Albumin 2.8 GM/DL (3.4-5.0) Calcium Level 7.3 MG/DL (8.5-10.1) Phosphorus Level 2.1 MG/DL (2.5-4.9) Magnesium Level 1.2 MG/DL (1.5-2.5) Alkaline Phosphatase 57 U/L (45-117) Aspartate Amino Transf (AST/SGOT) 23 U/L (15-37) Alanine Aminotransferase (ALT/SGPT) 15 U/L (10-53) Total Bilirubin 0.9 MG/DL (0.2-1.0) Sodium Level 145 MEQ/L (136-145) Potassium Level 2.8 MEQ/L (3.5-5.1) Chloride Level 112 MEQ/L (98-107) Carbon Dioxide Level 23.9 MEQ/L (21.0-32.0) Anion Gap 9 MEQ/L (5-15) Estimat Glomerular Filtration Rate 81 ML/MIN (>89) Protein Corrected Calcium 7.8 MG/DL (8.5-10.1) Total Creatine Kinase 63 U/L (26-192) Troponin I 0.12 NG/ML (0.02-0.05) Thyroid Stimulating Hormone 3rd Gen 0.340 uIU/ML (0.358-3.740) Result Diagram: 01/28/18 0500 01/28/18 0500 Microbiology Microbiology Date/Time Source Procedure Growth Status 01/27/18 16:40 Blood Peripheral Aerobic Blood Culture - Preliminary NO GROWTH IN 1 DAY Resulted 01/27/18 16:40 Blood Peripheral Anaerobic Blood Culture - Preliminary NO GROWTH IN 1 DAY Resulted 01/27/18 16:35 Blood Peripheral Aerobic Blood Culture - Preliminary NO GROWTH IN 1 DAY Resulted 01/27/18 16:35 Blood Peripheral Anaerobic Blood Culture - Preliminary NO GROWTH IN 1 DAY Resulted 01/27/18 23:30 Sputum Endotracheal Gram Stain - Final Resulted 01/27/18 23:30 Sputum Endotracheal Sputum Culture Pending Resulted Imaging Last Impressions Head CT 01/27/187 Signed Impressions: CONCLUSION: 1. No acute abnormality seen. 2. Mild atrophy. Chest X-Ray 01/27/187 Signed Impressions: CONCLUSION: Negative for acute process. . Procedures * 01/27/18 - Intubated and left femoral central line placed. . Patient/Family Conference Present at Family Conference: No family present. Patient has not been identified. . Issues Discussed: Assessment and Plan Disease Oriented Problem List: (1) Altered mental status (2) Respiratory failure Symptom Scale: (1) Pain 0-10 Scale: Unable to quantify (2) Dyspnea 0-10 Scale: Unable to quantify Comment: On CPAP Pertinent Non-Medical Issues Unable to obtain, pt intubated on vent unable to answer questions. Psychosocial: Spiritual: Legal: Ethical issues impacting care: Important Contacts Unable to obtain, pt intubated on vent unable to answer questions. Patient has not yet been identified. . Prognosis Patient was admitted after K2 use and seizure. She is on mech vent, hopefully will be able to be weaned from vent in the coming days. Will need to monitor for further prognostication. . Code Status: Full Code (by default) Plan * Legal decision maker: Unable to determine at this time, patient has not yet been identified. * FULL CODE * Given that patient has not been identified, unable to determine legal healthcare proxy decision-maker medical team should continue aggressive care including FULL CODE by default. Palliative care will continue to follow to assist with further clarification of treatment goals once patient has been identified, family status determined and if patient is able to make her own medical decisions if able to be medically extubated in the coming days. * SYMPTOMS: Pain secondary to recent seizure, debility, tubes/machines. Does not appear painful during my visit. Dyspnea: Currently tolerating CPAP, hopefully patient will be able to be medically extubated in the coming days. No new medication recommendations at this time. * Positive care will continue to follow throughout hospital course to assist with symptom management and clarification of medical treatment goals as needed. . Thank you for the opportunity to participate in the care of Ms. West. Attestation To help prompt me to consider important information that might be impacting today's encounter and assessment, information from prior notes written by myself or my colleagues may have been "brought forward" into today's note. My signature on this note, however, is an attestation that I personally performed the exam, history, and/or decision-making noted today, and, unless otherwise indicated, the interactions with patient, family, and staff as well as the review of records all occurred today. I also attest that the listed assessment and stated plan reflect my best clinical judgment today based on the combination of historical information, prior notes, and today's exam/ interactions. When time spent is documented, it refers only to time spent today by the signer, or if indicated, combined time spent today by collaborating physician/nurse practitioner. Anna Felix Jan 28, 2018 13:49
--- NOTE | 2018-01-28 16:47 | EKG ---
Date Performed: 01/27/2018 Time Performed: 16:39:14 PTAGE: 89 years EKG: SINUS TACHYCARDIA ST DEVIATION AND MODERATE T-WAVE ABNORMALITY, CONSIDER INFERIOR ISCHEMIA ABNORMAL ECG INTERPRETATION BASED ON A DEFAULT AGE OF 42 YEARS NO PREVIOUS TRACING DOCTOR: Dwayne Healy Interpretating Date/Time 01/28/2018 16:44:50
[2018-01-28] MEDS ORDERED: DOPamine 400 MG/250 ML INJ 250 ML ONE (17:18)
[2018-01-28 22:21] LABS: BICARBONATE 21.6 MEQ/L (21.0-32.0); CALCIUM 6.8 MG/DL (8.5-10.1); CREATININE 0.74 MG/DL (0.50-1.00); MAGNESIUM 1.3 MG/DL (1.5-2.5); PHOSPHORUS 2.9 MG/DL (2.5-4.9)
[2018-01-28 22:53] LABS: TOTAL PROTEIN 5.9 GM/DL (6.4-8.2)
[2018-01-28 22:56] LABS: CALCIUM-PROTEIN CORRECTED 7.4 MG/DL (8.5-10.1)
[2018-01-28] MEDS ORDERED: CALCIUM CHLORIDE INJ 1 GM in SODIUM CHLORIDE 0.9% INJ 100 ML IV ONE (23:30)
[2018-01-29] VITALS (27 sets, daily range): BP systolic 70–141; BP diastolic 50–91; PULSE 70–91; RESP 18–39; TEMP 97.7–98.9; O2SAT 82–96
[2018-01-29] MEDS: CEFEPIME INJ 2,000 MG in SODIUM CHLORIDE 0.9% INJ 100 ML IV SCH ×2 (00:25→11:52)
[2018-01-29] MEDS: VANCOMYCIN INJ 750 MG in SODIUM CHLOR 0.9% 250 ML INJ 250 ML IV SCH ×2 (01:00→12:24)
[2018-01-29] MEDS: RESP: ALBUTEROL 2.5 MG/IPRATROPIUM 0.5 MG NEB (SCH) NEB ×4 (03:19→20:58)
[2018-01-29] MEDS: CHLORHEXIDINE GLUCONATE 2 % 1 PACK (2 CLOTHS) TOP SCH (04:00)
[2018-01-29 06:05] LABS: AUTOMATED NEUTROPHIL # 4.9 TH/MM3 (1.8-7.7); BASOPHIL % 0.5 % (0.0-2.0); EOSINOPHIL # 0.1 TH/MM3 (0-0.4); EOSINOPHIL % 1.1 % (0.0-4.0); HEMATOCRIT 36.5 % (35.0-46.0); HEMOGLOBIN 12.5 GM/DL (11.6-15.3); LYMPH % 17.9 % (9.0-44.0); LYMPHOCYTE # 1.2 TH/MM3 (1.0-4.8); MEAN CELL VOLUME 96.3 FL (80.0-100.0); MEAN CORPUSCULAR HGB CONC 34.2 % (32.0-36.0); MEAN PLATELET VOLUME 7.6 FL (7.0-11.0); MONOCYTE # 0.7 TH/MM3 (0-0.9); NEUT % 70.5 % (16.0-70.0); PLATELET COUNT 119 TH/MM3 (150-450); RED BLOOD COUNT 3.79 MIL/MM3 (4.00-5.30); RED CELL DISTRIBUTION WIDTH 13.2 % (11.6-17.2)
[2018-01-29 06:37] LABS: ALBUMIN 2.8 GM/DL (3.4-5.0); ALKALINE PHOSPHATASE 57 U/L (45-117); ALT (GPT) 19 U/L (10-53); AST (GOT) 30 U/L (15-37); BICARBONATE 24.5 MEQ/L (21.0-32.0); BLOOD UREA NITROGEN 6 MG/DL (7-18); CALCIUM 8.2 MG/DL (8.5-10.1); CHLORIDE 107 MEQ/L (98-107); CREATININE 0.77 MG/DL (0.50-1.00); GLOMERULAR FILTRATION RATE 65 ML/MIN (>89); GLUCOSE,RANDOM 100 MG/DL (74-106); MAGNESIUM 1.2 MG/DL (1.5-2.5); PHOSPHORUS 3.1 MG/DL (2.5-4.9); SODIUM (NA) 141 MEQ/L (136-145); TOTAL BILIRUBIN ADULT 0.6 MG/DL (0.2-1.0); TOTAL PROTEIN 6.3 GM/DL (6.4-8.2)
[2018-01-29] MEDS: CHLORHEXIDINE 0.12% (ORAL KIT) 15 ML CUP MT SCH ×2 (07:32→20:00)
[2018-01-29] MEDS: SODIUM CHLORIDE 0.9% FLUSH 10 ML FLUSH IV FLUSH SCH ×2 (07:47→21:38)
[2018-01-29] MEDS: FAMOTIDINE 20 MG TAB TUBE SCH ×2 (07:47→21:00)
--- NOTE | 2018-01-29 08:39 | HHI.CCPN ---
Subjective Remarks/Hospital Course Patient is homeless and was brought in by EMS secondary to questionable seizure activity. Patient was smoking K2 and she started to have a seizure. She became combative on the scene and temperature was 101. Gave her ice packs. She was also slightly hypotensive at 90s systolic and tachycardic. Patient arrived in the ER unable to get a history secondary to her being altered and combative. Patient was intubated by ER physician and placed on mechanical ventilation. Subsequently patient developed hypotension received 4 L fluid boluses however remained hypotensive with systolic blood pressure in the 60s when I arrived to evaluate her in the ER. She had been started on Versed which was held earlier due to hypotension. When I evaluated the patient she was orally intubated on mechanical ventilation with systolic blood pressure in the 60s and heart rate in the 40s. I immediately ordered Levophed and dopamine GTT. I immediately started making preparation to place a central line however patient developed worsening bradycardia with heart rate dropping down to 25. She was given 1 amp of atropine and epinephrine IV push with which her heart rate came up to the 100s and blood pressure improved. A left femoral central line was placed emergently for central vascular access. Bedside echo performed by myself revealed good LV/RV contractility with no pericardial effusion noted. Patient did receive a dose of vancomycin and Zosyn IV in the ER she was also febrile up to 102 on arrival though this may be related to K2 use. 01/28: No events over the night. Patient remains intubated, Versed drip stopped this morning. Patient continues to require dopamine at 10, for BP support, bradycardia resolved, norepinephrine is off. She was hypothermic overnight requiring Muriel hugger now normothermic. She is lethargic and very difficult to arouse. 01/29: No events over the night. Patient did well postextubation. She still remains on dopamine, currently at 5, not able to be weaned off so far. I/O 2051. Patient is awake, in no distress, denies chest pain, shortness of breath , palpitations, abdominal pain. Of note, patient is a 63-year-old lady and denies any other medical problems. She does not clearly remember what happened. ROS - patient denies fever, chills, headache, weakness, dizziness, double vision , eye pain, neck pain, no ALBA, no CP, palpitations, no dyspnea, cough or wheezes , no abdominal pain, no nausea, no vomiting, denies diarrhea, no dysuria or urinary frequency Objective Vital Signs Date Time Temp Pulse Resp B/P (MAP) Pulse Ox O2 Delivery O2 Flow Rate FiO2 01/29/18 06:00 76 01/29/18 04:00 98.6 23 132/79 (96) 91 01/28/18 20:28 Nasal Cannula 2.00 01/28/18 12:00 40 Intake and Output 01/29/18 01/29/18 01/30/18 08:00 16:00 00:00 Intake Total 457.5 ml Output Total 5000 ml Balance -4542.5 ml Result Diagram: 01/29/18 0540 01/29/18 0540 Other Results Microbiology Date/Time Source Procedure Growth Status 01/27/18 16:40 Blood Peripheral Aerobic Blood Culture - Preliminary NO GROWTH IN 1 DAY Resulted 01/27/18 16:40 Blood Peripheral Anaerobic Blood Culture - Preliminary NO GROWTH IN 1 DAY Resulted 01/27/18 16:35 Blood Peripheral Aerobic Blood Culture - Preliminary NO GROWTH IN 1 DAY Resulted 01/27/18 16:35 Blood Peripheral Anaerobic Blood Culture - Preliminary NO GROWTH IN 1 DAY Resulted 01/27/18 23:30 Sputum Endotracheal Gram Stain - Final Resulted 01/27/18 23:30 Sputum Endotracheal Sputum Culture Pending Resulted Imaging Last [address] 01/27/181626 Signed Impressions: CONCLUSION: 1. No acute abnormality seen. 2. Mild atrophy. Chest X-Ray 01/27/181626 Signed Impressions: CONCLUSION: Negative for acute process. Last Impressions Head CT 01/27/181626 Signed Impressions: CONCLUSION: 1. No acute abnormality seen. 2. Mild atrophy. Chest X-Ray 01/27/181626 Signed Impressions: CONCLUSION: Negative for acute process. Objective Remarks General - elderly lady, awake, in no distress, cachectic HEENT - pupils equal, reactive, sclerae anicteric, neck supple, no nuchal rigidity, neck veins not distended, no carotid bruit, no thrush, MMM CV - regular S1, S2, no murmurs Chest - clear b/l, good air entry, no wheezes Abdomen - soft, non-tender, non-distended, BS present, no hepatomegaly, no splenomegaly Skin - no rashes, no cyanosis, stage I sacral decubitus Extremities - warm and well perfused, no edema, + peripheral pulses, no clubbing , left femoral CVC - site is clean Neuro - awake alert and oriented, moves all extremities A/P Assessment and Plan 1. Acute encephalopathy, likely in the setting of substance abuse - K 2 - resolved 2. New onset seizure, likely secondary to above -no recurrence since admission to the ICU 3. Acute respiratory failure due to inability to protect the airway -resolved, patient is extubated doing well 4. Circulatory shock, likely septic but hypovolemia definitely contributing - still requiring low-dose pressor 5. Episode of bradycardia in ED -resolved 6. ALICJA -resolved, right urine output 7. Hypokalemia, hypophosphatemia, hypomagnesemia -improved 1. Supplemental O2 as needed to keep SPO2 above 93% 2. Bronchodilators as needed 3. Give additional liter fluid bolus 4. Continue BP support with dopamine and titrate to keep map above 65 5. Continue vancomycin and cefepime for now 6. Follow-up cultures 7. Electrolyte replacement protocol ordered 8. Check cortisol level 9. Continue femoral central line today 11. GI and DVT prophylaxis 12. On diet No family is present at bedside. When patient is weaned off pressors we will transition care to hospitalist service. Jose E Junior MD Jan 29, 2018 08:39
[2018-01-29] MEDS ORDERED: SODIUM CHLOR 0.9% 1000 ML INJ 1,000 ML IV ONE (09:00)
[2018-01-29] MEDS: HEPARIN SODIUM - SQ 10,000 UNITS/ML VIAL SQ SCH ×2 (11:53)
[2018-01-29] MEDS: SODIUM CHLOR 0.9% 1000 ML INJ 1,000 ML IV SCH (12:24)
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
--- NOTE | 2018-01-29 16:52 | ECHRPT ---
Indication: ASSESS LV FUNCTION CONCLUSIONS Normal left ventricular size. Wall thickness is normal. The left ventricular systolic function is normal (EF 55%). There is trace tricuspid valve regurgitation. The estimated pulmonary arterial pressure is 52 mmHg. BP: 111 / 73 HR: 84 Rhythm: Sinus MEASUREMENTS (Male / Female) Normal Values Technical Quality:Fair 2D ECHO LV Diastolic Diameter PLAX 3.6 cm 4.2 - 5.9 / 3.9 - 5.3 cm LV Systolic Diameter PLAX 2.3 cm IVS Diastolic Thickness 0.7 cm 0.6 - 1.0 / 0.6 - 0.9 cm LVPW Diastolic Thickness 0.7 cm 0.6 - 1.0 / 0.6 - 0.9 cm LV Relative Wall Thickness 0.4 RV Internal Dim ED PLAX 1.2 cm LVOT Diameter 1.3 cm Aortic Root Diameter 2.0 cm LA Systolic Diameter LX 2.3 cm 3.0 - 4.0 / 2.7 - 3.8 cm DOPPLER AV Peak Velocity 123.0 cm/s AV Peak Gradient 6.1 mmHg AV Mean Gradient 3.0 mmHg AV Velocity Time Integral 22.0 cm LVOT Peak Velocity 85.0 cm/s LVOT Peak Gradient 2.9 mmHg LVOT Velocity Time Integral 15.6 cm AV Area Cont Eq vti 0.9 cm AV Area Cont Eq pk 0.9 cm Mitral E Point Velocity 94.8 cm/s Mitral A Point Velocity 80.9 cm/s Mitral E to A Ratio 1.2 LV E' Lateral Velocity 11.6 cm/s Mitral E to LV E' Lateral Ratio 8.2 LV E' Septal Velocity 9.8 cm/s Mitral E to LV E' Septal Ratio 9.7 TR Peak Velocity 322.0 cm/s TR Peak Gradient 41.5 mmHg Right Atrial Pressure 10.0 mmHg Pulmonary Artery Systolic Pressu 51.5 mmHg Right Ventricular Systolic Press 51.5 mmHg PV Peak Velocity 43.6 cm/s PV Peak Gradient 0.8 mmHg FINDINGS LEFT VENTRICLE Normal left ventricular size. Wall thickness is normal. The left ventricular systolic function is normal (EF 55%). RIGHT VENTRICLE Normal right ventricular size and systolic function. LEFT ATRIUM The left atrial size is normal. RIGHT ATRIUM The right atrial size is normal. ATRIAL SEPTUM No atrial level shunt is demonstrated by color flow Doppler interrogation. AORTA The aortic root and proximal ascending aorta are not well visualized. MITRAL VALVE Structurally normal mitral valve. No mitral valve stenosis or regurgitation. AORTIC VALVE No aortic valve stenosis or regurgitation. TRICUSPID VALVE There is trace tricuspid valve regurgitation. The estimated pulmonary arterial pressure is 51.5 mmHg. PULMONARY VALVE The pulmonary valve is not well visualized. VESSELS The inferior vena cava is normal in size. PERICARDIUM No pericardial effusion. Andrea Thomas MD, FACC (Electronically Signed) Final Date:29 January 2018 16:50
[2018-01-29] MEDS ORDERED: RESP: ALBUTEROL 2.5 MG/3 ML NEB (PRN) NEB (21:15)
[2018-01-29] MEDS ORDERED: LORazepam 2 MG/ML VIAL IV PUSH PRN ×4 (21:15)
[2018-01-29] MEDS ORDERED: LORazepam 1 MG TAB PO PRN (21:15)
[2018-01-29] MEDS ORDERED: FLUMAZENIL 0.5 MG/5 ML VIAL IV PUSH PRN (21:15)
[2018-01-29] MEDS ORDERED: LORazepam 2 MG TAB PO PRN (21:15)
[2018-01-30] VITALS (7 sets, daily range): BP systolic 94–144; BP diastolic 62–79; PULSE 76–85; RESP 16–18; TEMP 97.5–98.8; O2SAT 92–95
[2018-01-30] MEDS: HEPARIN SODIUM - SQ 10,000 UNITS/ML VIAL SQ SCH ×2 (00:25→11:39)
[2018-01-30] MEDS: RESP: ALBUTEROL 2.5 MG/IPRATROPIUM 0.5 MG NEB (SCH) NEB ×4 (03:07→19:40)
[2018-01-30] MEDS: SODIUM CHLOR 0.9% 1000 ML INJ 1,000 ML IV SCH ×3 (06:15→21:57)
[2018-01-30 07:25] LABS: BASOPHIL % 0.4 % (0.0-2.0); EOSINOPHIL # 0.2 TH/MM3 (0-0.4); EOSINOPHIL % 2.7 % (0.0-4.0); HEMATOCRIT 33.2 % (35.0-46.0); HEMOGLOBIN 11.4 GM/DL (11.6-15.3); LYMPH % 18.2 % (9.0-44.0); LYMPHOCYTE # 1.1 TH/MM3 (1.0-4.8); MEAN CELL VOLUME 95.6 FL (80.0-100.0); MEAN CORPUSCULAR HEMOGLOBIN 32.8 PG (27.0-34.0); MEAN CORPUSCULAR HGB CONC 34.3 % (32.0-36.0); MEAN PLATELET VOLUME 7.7 FL (7.0-11.0); MONO % 10.6 % (0.0-8.0); MONOCYTE # 0.6 TH/MM3 (0-0.9); NEUT % 68.1 % (16.0-70.0); PLATELET COUNT 113 TH/MM3 (150-450); RED BLOOD COUNT 3.47 MIL/MM3 (4.00-5.30); WHITE BLOOD COUNT 5.9 TH/MM3 (4.0-11.0)
[2018-01-30] MEDS: CHLORHEXIDINE 0.12% (ORAL KIT) 15 ML CUP MT SCH ×2 (07:49→20:00)
[2018-01-30] MEDS: MULTIVITAMIN TAB PO SCH (08:00)
[2018-01-30] MEDS: THIAMINE HCL 100 MG TAB PO SCH (08:00)
[2018-01-30] MEDS: FAMOTIDINE 20 MG TAB TUBE SCH ×2 (08:00→21:00)
[2018-01-30] MEDS: FOLIC ACID 1 MG TAB PO SCH (08:00)
[2018-01-30 08:03] LABS: ALBUMIN 2.5 GM/DL (3.4-5.0); BICARBONATE 23.3 MEQ/L (21.0-32.0); CALCIUM 7.4 MG/DL (8.5-10.1); CALCIUM-PROTEIN CORRECTED 8.1 MG/DL (8.5-10.1); CREATININE 0.64 MG/DL (0.50-1.00); MAGNESIUM 1.1 MG/DL (1.5-2.5); PHOSPHORUS 2.7 MG/DL (2.5-4.9); TOTAL BILIRUBIN ADULT 0.6 MG/DL (0.2-1.0); TOTAL PROTEIN 5.9 GM/DL (6.4-8.2)
[2018-01-30] MEDS: CEFEPIME INJ 2,000 MG in SODIUM CHLORIDE 0.9% INJ 100 ML IV SCH ×2 (11:36→23:58)
[2018-01-30] MEDS ORDERED: PHARMACY ORDERED LAB ONE (12:45)
[2018-01-30] MEDS ORDERED: VANCOMYCIN INJ 750 MG in SODIUM CHLOR 0.9% 250 ML INJ 250 ML IV SCH (13:00)
--- NOTE | 2018-01-30 13:59 | HHI.PR ---
Subjective Remarks With shortness of breath. She is saturating well on 2 L by nasal cannula. Feels tired. Says she is not feeling good however she is not able to specify. When asked she denies having any chest pain, shortness of breath, lightheadedness, diaphoresis. No nausea vomiting no diarrhea constipation. No cough fever chills. No new motor deficit. He Objective Vitals Vital Signs Date Time Temp Pulse Resp B/P (MAP) Pulse Ox O2 Delivery O2 Flow Rate FiO2 01/30/18 09:05 92 Nasal Cannula 2.00 01/30/18 04:00 98.8 79 18 110/75 (87) 95 01/29/18 22:30 98.2 85 18 141/91 (108) 96 01/29/18 20:58 92 Nasal Cannula 2.00 01/29/18 20:00 86 01/29/18 20:00 97.7 86 24 131/78 (95) 88 01/29/18 16:00 81 01/29/18 16:00 81 22 122/69 (86) 92 01/29/18 14:00 83 I/O 01/29/18 01/29/18 01/29/18 01/30/18 01/30/18 01/30/18 07:00 15:00 23:00 07:00 15:00 23:00 Intake Total 457.5 ml 600 ml 2880 ml 350 ml Output Total 5000 ml 2100 ml Balance -4542.5 ml 600 ml 780 ml 350 ml Intake Oral 980 ml 0 ml IV Total 457.5 ml 600 ml 1900 ml 350 ml Output Urine Total 5000 ml 2100 ml Stool Total 0 ml # Voids 2 # Bowel Movements 0 2 0 Result Diagram: 01/30/18 0655 01/30/18654 Imaging Last Impressions Head CT 01/27/181626 Signed Impressions: CONCLUSION: 1. No acute abnormality seen. 2. Mild atrophy. Chest X-Ray 01/27/181626 Signed Impressions: CONCLUSION: Negative for acute process. Objective Remarks GENERAL: elderly lady, awake, in no distress, cachectic. SKIN: stage I sacral decubitus CARDIOVASCULAR: Regular rate and rhythm. RESPIRATORY: No accessory muscle use. Clear to auscultation. Breath sounds equal bilaterally. GASTROINTESTINAL: Abdomen soft, non-tender, nondistended. Hepatic and splenic margins not palpable. MUSCULOSKELETAL: Extremities without clubbing, cyanosis, or edema. No obvious deformities. NEUROLOGICAL: Awake and alert. No obvious cranial nerve deficits. Motor grossly within normal limits. Five out of 5 muscle strength in the arms and legs. Normal speech. PSYCHIATRIC: Appropriate mood and affect; insight and judgment normal. A/P Assessment and Plan Acute encephalopathy, likely in the setting of substance abuse - K 2 -resolved New onset seizure, likely secondary to above -no recurrence since admission Acute respiratory failure due to inability to protect the airway -resolved, patient is extubated doing well Circulatory shock, likely septic but hypovolemia definitely contributing -still requiring low-dose pressor Episode of bradycardia in ED -resolved ALICJA -resolved, right urine output Hypokalemia, hypophosphatemia, hypomagnesemia -improved Supplemental O2 as needed to keep SPO2 above 93% Bronchodilators as needed Give additional liter fluid bolus Continue BP support with dopamine and titrate to keep map above 65 Continue vancomycin and cefepime for now Follow-up cultures Electrolyte replacement protocol Check cortisol level GI and DVT prophylaxis famotidine/heparin Pt has no family. Palliative care ff. Patient is DNR. Plans to go back to streets when discharged ... Yola Schrader MD Jan 30, 2018 13:59
[2018-01-30] MEDS ORDERED: POTASSIUM CHLORIDE 20 MEQ CONTROLLED RELEASE TAB PO ONE (15:00)
[2018-01-30] MEDS: MAGNESIUM SULFATE 1 GM PREMIX 100 ML IV SCH ×2 (16:00→18:32)
[2018-01-30] MEDS ORDERED: CALCIUM CHLORIDE INJ 1 GM in DEXTROSE 5% IN WATER 100ML INJ 100 ML IV ONE ×2 (16:00)
[2018-01-31] VITALS: BP 127/86; PULSE 81; RESP 18; TEMP 97.8; O2SAT 94
[2018-01-31] MEDS: RESP: ALBUTEROL 2.5 MG/IPRATROPIUM 0.5 MG NEB (SCH) NEB ×3 (03:51→16:00)
[2018-01-31 04:00] VITALS: BP 121/84; PULSE 79; RESP 17; TEMP 97.7; O2SAT 94
[2018-01-31] MEDS: SODIUM CHLOR 0.9% 1000 ML INJ 1,000 ML IV SCH ×2 (06:00→14:00)
[2018-01-31] MEDS: CHLORHEXIDINE 0.12% (ORAL KIT) 15 ML CUP MT SCH (06:56)
[2018-01-31 07:52] LABS: AUTOMATED NEUTROPHIL # 3.5 TH/MM3 (1.8-7.7); BASOPHIL % 0.8 % (0.0-2.0); EOSINOPHIL # 0.3 TH/MM3 (0-0.4); EOSINOPHIL % 4.7 % (0.0-4.0); HEMATOCRIT 34.3 % (35.0-46.0); HEMOGLOBIN 11.6 GM/DL (11.6-15.3); LYMPH % 21.3 % (9.0-44.0); LYMPHOCYTE # 1.2 TH/MM3 (1.0-4.8); MEAN CELL VOLUME 96.4 FL (80.0-100.0); MEAN CORPUSCULAR HEMOGLOBIN 32.7 PG (27.0-34.0); MEAN CORPUSCULAR HGB CONC 33.9 % (32.0-36.0); MEAN PLATELET VOLUME 7.8 FL (7.0-11.0); MONO % 11.1 % (0.0-8.0); MONOCYTE # 0.6 TH/MM3 (0-0.9); NEUT % 62.1 % (16.0-70.0); PLATELET COUNT 140 TH/MM3 (150-450); RED BLOOD COUNT 3.56 MIL/MM3 (4.00-5.30); RED CELL DISTRIBUTION WIDTH 12.7 % (11.6-17.2); WHITE BLOOD COUNT 5.6 TH/MM3 (4.0-11.0)
[2018-01-31 08:00] VITALS: BP 117/82; PULSE 77; RESP 18; TEMP 97.6; O2SAT 93
[2018-01-31] MEDS: MULTIVITAMIN TAB PO SCH (08:09)
[2018-01-31] MEDS: FAMOTIDINE 20 MG TAB TUBE SCH (08:09)
[2018-01-31] MEDS: THIAMINE HCL 100 MG TAB PO SCH (08:09)
[2018-01-31] MEDS: FOLIC ACID 1 MG TAB PO SCH (08:10)
[2018-01-31 08:27] LABS: ALBUMIN 2.6 GM/DL (3.4-5.0); AST (GOT) 19 U/L (15-37); BICARBONATE 23.8 MEQ/L (21.0-32.0); BLOOD UREA NITROGEN 7 MG/DL (7-18); CALCIUM 8.1 MG/DL (8.5-10.1); CHLORIDE 107 MEQ/L (98-107); CREATININE 0.64 MG/DL (0.50-1.00); GLOMERULAR FILTRATION RATE 95 ML/MIN (>89); GLUCOSE,RANDOM 82 MG/DL (74-106); MAGNESIUM 1.7 MG/DL (1.5-2.5); SODIUM (NA) 140 MEQ/L (136-145)
[2018-01-31 08:32] LABS: ALKALINE PHOSPHATASE 52 U/L (45-117); ALT (GPT) 16 U/L (10-53); PHOSPHORUS 2.4 MG/DL (2.5-4.9); TOTAL BILIRUBIN ADULT 0.6 MG/DL (0.2-1.0); TOTAL PROTEIN 6.4 GM/DL (6.4-8.2)
--- NOTE | 2018-01-31 08:47 | HHI.PR ---
Subjective Remarks Feeling better. She is saturating well while air at this time. Denies any chest pain breath no nausea vomiting. Unsteady when she is walking. Physical therapy to evaluate the patient prior to discharge. Might need walker Objective Vitals Vital Signs Date Time Temp Pulse Resp B/P (MAP) Pulse Ox O2 Delivery O2 Flow Rate FiO2 01/31/18 08:00 97.6 77 18 117/82 (94) 93 01/31/18 04:00 97.7 79 17 121/84 (96) 94 01/31/18 00:00 97.8 81 18 127/86 (100) 94 01/30/18 20:00 97.9 85 18 94/62 (73) 94 01/30/18 19:40 21 01/30/18 16:00 97.6 81 16 144/79 (100) 95 01/30/18 15:51 95 Nasal Cannula 21 01/30/18 12:00 97.5 77 18 110/68 (82) 95 01/30/18 09:05 92 Nasal Cannula 2.00 I/O 01/30/18 01/30/18 01/30/18 01/31/18 01/31/18 01/31/18 07:00 15:00 23:00 07:00 15:00 23:00 Intake Total 350 ml 2400 ml 1120 ml Output Total 651 ml Balance 350 ml 1749 ml 1120 ml Intake Oral 0 ml 840 ml 120 ml IV Total 350 ml 1560 ml 1000 ml Output Urine Total 650 ml Stool Total 1 ml # Voids 2 3 # Bowel Movements 0 1 Result Diagram: 01/31/18 0649 01/31/18 0649 Imaging Last Impressions Head CT 01/27/181626 Signed Impressions: CONCLUSION: 1. No acute abnormality seen. 2. Mild atrophy. Chest X-Ray 01/27/181626 Signed Impressions: CONCLUSION: Negative for acute process. Objective Remarks GENERAL: elderly lady, awake, in no distress, cachectic. SKIN: stage I sacral decubitus CARDIOVASCULAR: Regular rate and rhythm. RESPIRATORY: No accessory muscle use. Clear to auscultation. Breath sounds equal bilaterally. GASTROINTESTINAL: Abdomen soft, non-tender, nondistended. Hepatic and splenic margins not palpable. MUSCULOSKELETAL: Extremities without clubbing, cyanosis, or edema. No obvious deformities. NEUROLOGICAL: Awake and alert. No obvious cranial nerve deficits. Motor grossly within normal limits. Five out of 5 muscle strength in the arms and legs. Normal speech. PSYCHIATRIC: Appropriate mood and affect; insight and judgment normal. A/P Assessment and Plan Acute encephalopathy, likely in the setting of substance abuse - K 2 -resolved New onset seizure, likely secondary to above -no recurrence since admission Acute respiratory failure due to inability to protect the airway -resolved, patient is extubated doing well Circulatory shock, likely septic but hypovolemia definitely contributing -still requiring low-dose pressor Episode of bradycardia in ED -resolved ALICJA -resolved, right urine output Hypokalemia, hypophosphatemia, hypomagnesemia -improved Supplemental O2 as needed to keep SPO2 above 93% Bronchodilators as needed Give additional liter fluid bolus Continue BP support with dopamine and titrate to keep map above 65 Continue vancomycin and cefepime for now Follow-up cultures Electrolyte replacement protocol Check cortisol level GI and DVT prophylaxis famotidine/heparin Pt has no family. Palliative care ff. Patient is DNR. Plans to go back to streets when discharged ... Case management following for discharge plan patient is able to walk without any problems physical therapy does not recommend walker. Stable condition to follow-up as outpatient. Yola Schrader MD Jan 31, 2018 08:47
[2018-01-31] MEDS ORDERED: SERO25TA PO (08:52)
[2018-01-31] MEDS ORDERED: FOLI1TAB6 PO (08:52)
[2018-01-31] MEDS ORDERED: THIA100 PO (08:52)
[2018-01-31] MEDS ORDERED: THERTAB15 PO (08:52)
--- NOTE | 2018-01-31 08:53 | HHI.DS ---
Discharge Summary Admission Date Jan 27, 2018 at 19:05 Discharge Date: Jan 31, 2018 Admitting Diagnosis K2 and opioid intox (1) Dyspnea ICD Code: R06.00 - Dyspnea, unspecified (2) Pain ICD Code: R52 - Pain, unspecified (3) Drug/substance abuse Procedures none Brief History - From Admission History of Present Illness HPI Patient is homeless and was brought in by EMS secondary to questionable seizure activity. Patient was smoking K2 and she started to have a seizure. She became combative on the scene and temperature was 101. Gave her ice packs. She was also slightly hypotensive at 90s systolic and tachycardic. Patient arrived in the ER unable to get a history secondary to her being altered and combative. Patient was intubated by ER physician and placed on mechanical ventilation. Subsequently patient developed hypotension received 4 L fluid boluses however remained hypotensive with systolic blood pressure in the 60s when I arrived to evaluate her in the ER. She had been started on Versed which was held earlier due to hypotension. When I evaluated the patient she was orally intubated on mechanical ventilation with systolic blood pressure in the 60s and heart rate in the 40s. I immediately ordered Levophed and dopamine GTT. I immediately started making preparation to place a central line however patient developed worsening bradycardia with heart rate dropping down to 25. She was given 1 amp of atropine and epinephrine IV push with which her heart rate came up to the 100s and blood pressure improved. A left femoral central line was placed emergently for central vascular access. Bedside echo performed by myself revealed good LV/RV contractility with no pericardial effusion noted. Patient did receive a dose of vancomycin and Zosyn IV in the ER she was also febrile up to 102 on arrival though this may be related to K2 use. History PFSH Social History Tobacco Use: Yes Allergies-Medications Allergies-Medications (Allergen,Severity, Reaction): Coded Allergies: No Allergy Information Available (Unverified , 01/27/18) altered ROS Review of Systems ROS Limitations: Altered Mental Status CBC/BMP: 01/31/18 0649 01/31/18 0649 Significant Findings Laboratory Tests Test 6/19/18 20:20 01/29/18 05:40 01/29/18 09:10 01/30/18 06:55 Total Protein 5.9 GM/DL (6.4-8.2) 6.3 GM/DL (6.4-8.2) 5.9 GM/DL (6.4-8.2) Calcium Level 6.8 MG/DL (8.5-10.1) 8.2 MG/DL (8.5-10.1) 7.4 MG/DL (8.5-10.1) Magnesium Level 1.3 MG/DL (1.5-2.5) 1.2 MG/DL (1.5-2.5) 1.1 MG/DL (1.5-2.5) Potassium Level 3.4 MEQ/L (3.5-5.1) 3.2 MEQ/L (3.5-5.1) 2.7 MEQ/L (3.5-5.1) Chloride Level 112 MEQ/L (98-107) Estimat Glomerular Filtration Rate 68 ML/MIN (>89) 65 ML/MIN (>89) Protein Corrected Calcium 7.4 MG/DL (8.5-10.1) 8.1 MG/DL (8.5-10.1) Total Creatine Kinase 375 U/L (26-192) 302 U/L (26-192) Creatine Kinase MB 6.1 NG/ML (0.5-3.6) 4.7 NG/ML (0.5-3.6) Red Blood Count 3.79 MIL/MM3 (4.00-5.30) 3.47 MIL/MM3 (4.00-5.30) Platelet Count 119 TH/MM3 (150-450) 113 TH/MM3 (150-450) Neutrophils (%) (Auto) 70.5 % (16.0-70.0) Monocytes (%) (Auto) 10.0 % (0.0-8.0) 10.6 % (0.0-8.0) Blood Urea Nitrogen 6 MG/DL (7-18) Albumin 2.8 GM/DL (3.4-5.0) 2.5 GM/DL (3.4-5.0) Hemoglobin 11.4 GM/DL (11.6-15.3) Hematocrit 33.2 % (35.0-46.0) Test 01/30/18 12:45 01/31/18 06:49 Vancomycin Level Trough 10.9 MCG/ML (5.0-10.0) Red Blood Count 3.56 MIL/MM3 (4.00-5.30) Hematocrit 34.3 % (35.0-46.0) Platelet Count 140 TH/MM3 (150-450) Monocytes (%) (Auto) 11.1 % (0.0-8.0) Eosinophils (%) (Auto) 4.7 % (0.0-4.0) Albumin 2.6 GM/DL (3.4-5.0) Calcium Level 8.1 MG/DL (8.5-10.1) Phosphorus Level 2.4 MG/DL (2.5-4.9) Potassium Level 3.4 MEQ/L (3.5-5.1) Imaging Last Impressions Head CT 01/27/181626 Signed Impressions: CONCLUSION: 1. No acute abnormality seen. 2. Mild atrophy. Chest X-Ray 01/27/181626 Signed Impressions: CONCLUSION: Negative for acute process. PE at Discharge GENERAL: elderly lady, awake, in no distress, cachectic. SKIN: stage I sacral decubitus CARDIOVASCULAR: Regular rate and rhythm. RESPIRATORY: No accessory muscle use. Clear to auscultation. Breath sounds equal bilaterally. GASTROINTESTINAL: Abdomen soft, non-tender, nondistended. Hepatic and splenic margins not palpable. MUSCULOSKELETAL: Extremities without clubbing, cyanosis, or edema. No obvious deformities. NEUROLOGICAL: Awake and alert. No obvious cranial nerve deficits. Motor grossly within normal limits. Five out of 5 muscle strength in the arms and legs. Normal speech. PSYCHIATRIC: Appropriate mood and affect; insight and judgment normal. Hospital Course Acute encephalopathy, likely in the setting of substance abuse - K 2 -resolved New onset seizure, likely secondary to above -no recurrence since admission Acute respiratory failure due to inability to protect the airway -resolved, patient is extubated doing well Circulatory shock, likely septic but hypovolemia definitely contributing -still requiring low-dose pressor Episode of bradycardia in ED -resolved ALICJA -resolved, right urine output Hypokalemia, hypophosphatemia, hypomagnesemia -improved Supplemental O2 as needed to keep SPO2 above 93% Bronchodilators as needed Give additional liter fluid bolus Continue BP support with dopamine and titrate to keep map above 65 DC vancomycin and cefepime, cultures neg, switch to augmentin at DC. Sattign well on room air Follow-up cultures Electrolyte replacement protocol Check cortisol level GI and DVT prophylaxis famotidine/heparin Pt has no family. Palliative care ff. Patient is DNR. Plans to go back to streets when discharged ... Case management following for discharge plan patient is able to walk without any problems physical therapy does not recommend walker. DC in Stable condition to follow-up as outpatient. Pt Condition on Discharge: Stable Discharge Disposition: Discharge Home Discharge Time: > 30 minutes Discharge Instructions DIET: Follow Instructions for: Heart Healthy Diet Activities you can perform: Regular-No Restrictions Follow up Referrals: PCP Follow-up - 2-3 Days PCP Follow-up @ [facility] New Medications: Albuterol 18 GM Inh (Ventolin Hfa 18 GM Inh) 90 Mcg/Act Aer 2 PUFF INH Q4-6H PRN for SHORTNESS OF BREATH, #1 INHALER 0 Refills Amoxicillin-Clavulanate (Augmentin) 875-125 Mg Tab 1 TAB PO BID for Infection, #10 TAB 0 Refills Lactobacillus Acidophilus (Lactinex) 1 Chew 1 TAB CHEW DAILY for Nutritional Supplement, #30 TAB 0 Refills Walker Rolling/GetGo (Walker Rolling/GetGo) 1 Mis Mis EA .XX DIRECTED, #1 Folic Acid (Folic Acid) 1 Mg Tablet 1 MG PO DAILY for Nutritional Supplement, #30 TAB Multivitamin with Folic Acid (Thera Tablet) 400 Mcg Tablet 1 TAB PO DAILY for Nutritional Supplement, #30 TAB Quetiapine (Seroquel) 25 Mg Tab 25 MG PO DAILY for Agitation, #30 TAB Thiamine HCl (Gnp Vitamin B-1) 100 Mg Tab 100 MG PO DAILY for Nutritional Supplement, #30 TAB Yola Schrader MD Jan 31, 2018 08:53
[2018-01-31] MEDS ORDERED: VANCOMYCIN 1,000 MG/NS 250 ML IV SCH ×2 (09:00)
[2018-01-31] MEDS ORDERED: QUEtiapine FUMARATE 25 MG TAB PO SCH (09:00)
[2018-01-31] MEDS ORDERED: POTASSIUM BICARBONATE 25 MEQ EFFERVESCENT TAB PO ONE (09:00)
[2018-01-31] MEDS: CEFEPIME INJ 2,000 MG in SODIUM CHLORIDE 0.9% INJ 100 ML IV SCH (10:17)
[2018-01-31] MEDS ORDERED: GETGO ROLLING W1 MI1 (10:31)
[2018-01-31] MEDS ORDERED: AUGM875T3 PO (10:32)
[2018-01-31] MEDS ORDERED: VENTAER INH (10:32)
[2018-01-31] MEDS ORDERED: LACTCHW3 CHEW (10:32)
--- NOTE | 2018-01-31 11:18 | HHI.HCPN ---
Reason for visit a. To assist with evaluation and management of symptoms including: dyspnea, pain. b. To assist medical decision maker(s) with: better understanding of current medical conditions; weighing benefits/burdens of medical treatment options; making medical treatment decisions. . Subjective/Interval History INTERVAL NOTE: The patient remains alert, oriented, and is looking forward to leaving the hospital. I see that a discharge order has been entered. The patient confirms that she has no friends or family that she would want to serve as healthcare surrogates, and confirms her desire to remain DNR (although she will not sign a community form). She remains afebrile. . Advance Directives Living Will: Never completed Health Care Surrogate: Never completed Durable Power of Cloth Neutralizer: Never completed Advance Directive Specifics Health Care Surrogate(s): Patient reports she has no one that she would name to make decisions for her, and accepts the possibility that [employer] would become her decision -makers if she loses decision-making capacity and has healthcare needs in the future. . Objective Vital Signs Date Time Temp Pulse Resp B/P (MAP) Pulse Ox O2 Delivery O2 Flow Rate FiO2 01/31/18 08:00 97.6 77 18 117/82 (94) 93 01/31/18 04:00 97.7 79 17 121/84 (96) 94 01/31/18 00:00 97.8 81 18 127/86 (100) 94 01/30/18 20:00 97.9 85 18 94/62 (73) 94 01/30/18 19:40 21 01/30/18 16:00 97.6 81 16 144/79 (100) 95 01/30/18 15:51 95 Nasal Cannula 21 01/30/18 12:00 97.5 77 18 110/68 (82) 95 Intake & Output 01/31/18 01/31/18 07:00 19:00 Intake Total 2330 ml 250 ml Balance 2330 ml 250 ml Intake Oral 120 ml IV Total 2210 ml 250 ml # Voids 3 # Bowel Movements 1 Physical Exam CONSTITUTIONAL/GENERAL: This is an elderly, thin, ill appearing female, in no apparent distress. ENT: Hearing normal. Nose without bleeding or purulent drainage. Throat difficult to visualize due to tubes. CARDIOVASCULAR: Regular rate and rhythm without murmurs. RESPIRATORY/CHEST: clear lung sounds. GASTROINTESTINAL: Abdomen soft, distended. Bowel sounds hypoactive. GENITOURINARY: Without palpable bladder distension. Lassiter catheter in place. MUSCULOSKELETAL: Extremities without clubbing, cyanosis, or edema. No mottling or clubbing. NEUROLOGICAL: Awake, following commands. PSYCHIATRIC: Previous agitation, now calm . Diagnostic Tests Laboratory Laboratory Tests Test 01/28/18 20:20 01/29/18 05:40 01/29/18 09:10 01/30/18 06:55 Blood Urea Nitrogen 7 MG/DL (7-18) 6 MG/DL (7-18) 8 MG/DL (7-18) Creatinine 0.74 MG/DL (0.50-1.00) 0.77 MG/DL (0.50-1.00) 0.64 MG/DL (0.50-1.00) Random Glucose 96 MG/DL (74-106) 100 MG/DL (74-106) 83 MG/DL (74-106) Total Protein 5.9 GM/DL (6.4-8.2) 6.3 GM/DL (6.4-8.2) 5.9 GM/DL (6.4-8.2) Calcium Level 6.8 MG/DL (8.5-10.1) 8.2 MG/DL (8.5-10.1) 7.4 MG/DL (8.5-10.1) Phosphorus Level 2.9 MG/DL (2.5-4.9) 3.1 MG/DL (2.5-4.9) 2.7 MG/DL (2.5-4.9) Magnesium Level 1.3 MG/DL (1.5-2.5) 1.2 MG/DL (1.5-2.5) 1.1 MG/DL (1.5-2.5) Sodium Level 143 MEQ/L (136-145) 141 MEQ/L (136-145) 140 MEQ/L (136-145) Potassium Level 3.4 MEQ/L (3.5-5.1) 3.2 MEQ/L (3.5-5.1) 2.7 MEQ/L (3.5-5.1) Chloride Level 112 MEQ/L (98-107) 107 MEQ/L (98-107) 106 MEQ/L (98-107) Carbon Dioxide Level 21.6 MEQ/L (21.0-32.0) 24.5 MEQ/L (21.0-32.0) 23.3 MEQ/L (21.0-32.0) Anion Gap 9 MEQ/L (5-15) 10 MEQ/L (5-15) 11 MEQ/L (5-15) Estimat Glomerular Filtration Rate 68 ML/MIN (>89) 65 ML/MIN (>89) 95 ML/MIN (>89) Protein Corrected Calcium 7.4 MG/DL (8.5-10.1) 8.1 MG/DL (8.5-10.1) Total Creatine Kinase 375 U/L (26-192) 302 U/L (26-192) 131 U/L (26-192) Creatine Kinase MB 6.1 NG/ML (0.5-3.6) 4.7 NG/ML (0.5-3.6) Creatine Kinase MB % 1.6 % (0.0-4.0) 1.6 % (0.0-4.0) White Blood Count 7.0 TH/MM3 (4.0-11.0) 5.9 TH/MM3 (4.0-11.0) Red Blood Count 3.79 MIL/MM3 (4.00-5.30) 3.47 MIL/MM3 (4.00-5.30) Hemoglobin 12.5 GM/DL (11.6-15.3) 11.4 GM/DL (11.6-15.3) Hematocrit 36.5 % (35.0-46.0) 33.2 % (35.0-46.0) Mean Corpuscular Volume 96.3 FL (80.0-100.0) 95.6 FL (80.0-100.0) Mean Corpuscular Hemoglobin 33.0 PG (27.0-34.0) 32.8 PG (27.0-34.0) Mean Corpuscular Hemoglobin Concent 34.2 % (32.0-36.0) 34.3 % (32.0-36.0) Red Cell Distribution Width 13.2 % (11.6-17.2) 13.0 % (11.6-17.2) Platelet Count 119 TH/MM3 (150-450) 113 TH/MM3 (150-450) Mean Platelet Volume 7.6 FL (7.0-11.0) 7.7 FL (7.0-11.0) Neutrophils (%) (Auto) 70.5 % (16.0-70.0) 68.1 % (16.0-70.0) Lymphocytes (%) (Auto) 17.9 % (9.0-44.0) 18.2 % (9.0-44.0) Monocytes (%) (Auto) 10.0 % (0.0-8.0) 10.6 % (0.0-8.0) Eosinophils (%) (Auto) 1.1 % (0.0-4.0) 2.7 % (0.0-4.0) Basophils (%) (Auto) 0.5 % (0.0-2.0) 0.4 % (0.0-2.0) Neutrophils # (Auto) 4.9 TH/MM3 (1.8-7.7) 4.0 TH/MM3 (1.8-7.7) Lymphocytes # (Auto) 1.2 TH/MM3 (1.0-4.8) 1.1 TH/MM3 (1.0-4.8) Monocytes # (Auto) 0.7 TH/MM3 (0-0.9) 0.6 TH/MM3 (0-0.9) Eosinophils # (Auto) 0.1 TH/MM3 (0-0.4) 0.2 TH/MM3 (0-0.4) Basophils # (Auto) 0.0 TH/MM3 (0-0.2) 0.0 TH/MM3 (0-0.2) CBC Comment DIFF FINAL DIFF FINAL Differential Comment Albumin 2.8 GM/DL (3.4-5.0) 2.5 GM/DL (3.4-5.0) Alkaline Phosphatase 57 U/L (45-117) 48 U/L (45-117) Aspartate Amino Transf (AST/SGOT) 30 U/L (15-37) 21 U/L (15-37) Alanine Aminotransferase (ALT/SGPT) 19 U/L (10-53) 14 U/L (10-53) Total Bilirubin 0.6 MG/DL (0.2-1.0) 0.6 MG/DL (0.2-1.0) Random Cortisol 15.6 MCG/DL Test 01/30/18 12:45 01/31/18 06:49 Vancomycin Level Trough 10.9 MCG/ML (5.0-10.0) White Blood Count 5.6 TH/MM3 (4.0-11.0) Red Blood Count 3.56 MIL/MM3 (4.00-5.30) Hemoglobin 11.6 GM/DL (11.6-15.3) Hematocrit 34.3 % (35.0-46.0) Mean Corpuscular Volume 96.4 FL (80.0-100.0) Mean Corpuscular Hemoglobin 32.7 PG (27.0-34.0) Mean Corpuscular Hemoglobin Concent 33.9 % (32.0-36.0) Red Cell Distribution Width 12.7 % (11.6-17.2) Platelet Count 140 TH/MM3 (150-450) Mean Platelet Volume 7.8 FL (7.0-11.0) Neutrophils (%) (Auto) 62.1 % (16.0-70.0) Lymphocytes (%) (Auto) 21.3 % (9.0-44.0) Monocytes (%) (Auto) 11.1 % (0.0-8.0) Eosinophils (%) (Auto) 4.7 % (0.0-4.0) Basophils (%) (Auto) 0.8 % (0.0-2.0) Neutrophils # (Auto) 3.5 TH/MM3 (1.8-7.7) Lymphocytes # (Auto) 1.2 TH/MM3 (1.0-4.8) Monocytes # (Auto) 0.6 TH/MM3 (0-0.9) Eosinophils # (Auto) 0.3 TH/MM3 (0-0.4) Basophils # (Auto) 0.0 TH/MM3 (0-0.2) CBC Comment DIFF FINAL Differential Comment Blood Urea Nitrogen 7 MG/DL (7-18) Creatinine 0.64 MG/DL (0.50-1.00) Random Glucose 82 MG/DL (74-106) Total Protein 6.4 GM/DL (6.4-8.2) Albumin 2.6 GM/DL (3.4-5.0) Calcium Level 8.1 MG/DL (8.5-10.1) Phosphorus Level 2.4 MG/DL (2.5-4.9) Magnesium Level 1.7 MG/DL (1.5-2.5) Alkaline Phosphatase 52 U/L (45-117) Aspartate Amino Transf (AST/SGOT) 19 U/L (15-37) Alanine Aminotransferase (ALT/SGPT) 16 U/L (10-53) Total Bilirubin 0.6 MG/DL (0.2-1.0) Sodium Level 140 MEQ/L (136-145) Potassium Level 3.4 MEQ/L (3.5-5.1) Chloride Level 107 MEQ/L (98-107) Carbon Dioxide Level 23.8 MEQ/L (21.0-32.0) Anion Gap 9 MEQ/L (5-15) Estimat Glomerular Filtration Rate 95 ML/MIN (>89) Total Creatine Kinase 71 U/L (26-192) Result Diagram: 01/31/18 0649 01/31/18 0649 Imaging Last Impressions Head CT 01/27/181626 Signed Impressions: CONCLUSION: 1. No acute abnormality seen. 2. Mild atrophy. Chest X-Ray 01/27/181626 Signed Impressions: CONCLUSION: Negative for acute process. Procedures * 01/27/18 - Intubated and left femoral central line placed. * 01/28/18 - extubated. . Assessment and Plan Disease Oriented Problem List: (1) Altered mental status (2) Respiratory failure (3) Drug/substance abuse Symptom Scale: (1) Pain 0-10 Scale: 0 (2) Dyspnea 0-10 Scale: 0 Pertinent Non-Medical Issues * Psychosocial: Single. No children. Parents . No siblings. No close friends or family. Homeless. * Spiritual: Believes in God. 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 * Legal: Patient is currently capacitated to make her own healthcare decisions. She declines completion of written advance directives. Elects NO CODE, refuses to sign [place] DNR. She has no family or friends. She understands that should she lose capacity that healthcare decision making would fall to a licensed clinical executive secretary social welfare according to the [place] statutes; she is in agreement with this plan. * Ethical issues impacting care: No concerns at this time. . Important Contacts No family or friends identified, patient denies any living family or friends. . Prognosis Patient was admitted after K2 use and seizure. Patient was medically extubated , appeared agitated, likely withdrawal, and she is now being discharged from this hospitalization. High risk for further setbacks and repeat hospitalizations upon discharge. . Code Status: No Code Plan * DO NOT RESUSCITATE, per request of patient, but she refuses to sign the community DNR form * DECISION-MAKING: Patient is capacitated to make her own healthcare decisions. She declines completion of written advance directives. She has no family or friends. She understands that should she lose capacity that healthcare decision making would fall to a licensed clinical executive secretary social welfare according to the [place] statutes; she is in agreement with this plan. * Patient looking forward to leaving the hospital today, plans to return to the streets upon discharge. * SYMPTOMS: Pain secondary to recent seizure, debility, tubes/machines. Does not appear painful during my visit. Dyspnea: Resolved, now on room air. Denies SOB. No new medication recommendations at this time. * Palliative care will continue to follow throughout hospital course to assist with symptom management and clarification of medical treatment goals as needed. . Time Spent Total Floor Time (mins): 29 Face to Face Time (mins): 16 >50% Counseling/Coord of Care: Yes Attestation To help prompt me to consider important information that might be impacting today's encounter and assessment, information from prior notes written by myself or my colleagues may have been "brought forward" into today's note. My signature on this note, however, is an attestation that I personally performed the exam, history, and/or decision-making noted today, and, unless otherwise indicated, the interactions with patient, family, and staff as well as the review of records all occurred today. I also attest that the listed assessment and stated plan reflect my best clinical judgment today based on the combination of historical information, prior notes, and today's exam/ interactions. When time spent is documented, it refers only to time spent today by the signer, or if indicated, combined time spent today by collaborating physician/nurse practitioner. Isis Dorado MD Jan 31, 2018 11:18
[2018-01-31] MEDS: HEPARIN SODIUM - SQ 10,000 UNITS/ML VIAL SQ SCH ×2 (11:48)
[2018-01-31 12:00] VITALS: BP 121/85; PULSE 71; RESP 18; TEMP 98; O2SAT 91
[2018-02-03] MEDS ORDERED: PHARMACY ORDERED LAB ONE (08:45)
== END 2018-01-31 17:53 | disposition home or self-care (01) | DRG 871 ==
LOC: NEPE 16:13 → NEDA 19:05 → EDBD 19:05 → HIMN 23:15 → N04B 01-29 22:42
PROVIDERS: ADMIT Hospitalist; ATTEND Hospitalist
PROC: 5A1935Z Respiratory Ventilation, Less than 24 Consecutive Hours (ICD-10-PCS; principal; 2018-01-27)
PROC: 0BH17EZ Insertion of Endotracheal Airway into Trachea, Via Natural or Artificial Opening (ICD-10-PCS; 2018-01-27)
PROC: 06HY33Z Insertion of Infusion Device into Lower Vein, Percutaneous Approach (ICD-10-PCS; 2018-01-27)
DX: A41.9 Sepsis, unspecified organism (principal); J96.01 Acute respiratory failure with hypoxia; R65.21 Severe sepsis with septic shock; G92 Toxic encephalopathy; L89.151 Pressure ulcer of sacral region, stage 1; N17.9 Acute kidney failure, unspecified; E86.1 Hypovolemia; R64 Cachexia; G40.89 Other seizures; Z68.1 Body mass index [BMI] 19.9 or less, adult; R00.1 Bradycardia, unspecified; E87.6 Hypokalemia; E83.42 Hypomagnesemia; E83.39 Other disorders of phosphorus metabolism; F19.90 Other psychoactive substance use, unspecified, uncomplicated; F17.210 Nicotine dependence, cigarettes, uncomplicated; Z59.0 Homelessness; Z66 Do not resuscitate; Z62.810 Personal history of physical and sexual abuse in childhood; Z78.1 Physical restraint status
CPT/HCPCS: 31500; 36600; 51702; 70450; 71045; 76937; 80048; 80053; 80202; 80307; 81001; 82533; 82550; 82552; 82805; 83605; 83735; 84100; 84155; 84443; 84484; 85007; 85025; 85027; 85610; 85730; 87040; 87070; 87205; 87641; 93005; 93306; 94002; 94003; 94640; 94664; 96365; 96375; J0330; J0461; J0692; J1265; J1644; J2060; J2250; J2310; J2543; J3370; J3475; J3480; J7030; J7050